=== PATIENT | female | born 1955 | race African-American/Black ===

== ENCOUNTER 2022-05-03 09:06 | Outpatient (CLI) | payer MEDICARE, SELFPAY ==
--- NOTE | ~2022-05-03 | PE_ITS ---
EXAMINATION: PET skull to mid thigh DATE: 05/03/2022 11:12 INDICATION: Pelvic lymphadenopathy TECHNIQUE: 10.4 mCi of 18-fluorodeoxyglucose (18-FDG) was administered i.v. Low dose computed tomogra phy (CT) images were acquired from the base of the brain to the proximal thighs for attenuation corre ction and anatomic localization. Positron emission tomography (PET) images were acquired after inject ion. Images including fused PET/CT images were reconstructed in axial, coronal, and sagittal planes. Automatic exposure control is employed as a dose reduction technique. COMPARISON: None FINDINGS: Head/neck: No cervical lymphadenopathy. No hypermetabolic activity of the neck. Mild mucosal thickening right ma xillary sinus. Mucosal and parapharyngeal spaces are unremarkable. Chest: Mild atherosclerosis of the aorta. Borderline heart size. No significant pleural or pericardial effus ion. Mild mediastinal lymphadenopathy without abnormal FDG uptake. No significant pleural or pericard ial effusion. Evaluation for small pulmonary nodules limited by motion. There is emphysema. No focal airspace consolidation. No suspicious pulmonary nodules or masses. No endobronchial lesions. No hyper metabolic activity in the chest. Abdomen/pelvis/proximal thighs: The liver, spleen, right adrenal gland, pancreas, and kidneys are unremarkable. There is a 2.3 cm low -density lesion in the left adrenal gland, likely benign adenoma. Gallbladder is present. Nonobstruct neftali bowel gas pattern. Normal appendix. Mildly enlarged bilateral obturator lymph nodes no hypermetab olic activity in the abdomen or pelvis. Nonobstructive bowel pattern. No free air or free fluid. With out abnormal FDG uptake, likely reactive. Bones/Soft tissues: No hypermetabolic activity in the bones or soft tissues. IMPRESSION: 1. Mild bilateral symmetric obscured or lymph node enlargement without abnormal FDG uptake, likely re active. 2: No hypermetabolic activity identified in the head/neck, chest, abdomen or pelvis. 3: Left adrenal mass measuring 2.3 cm, likely benign adenoma. Reviewed, dictated and finalized at location A. IMPRESSION: 1. Mild bilateral symmetric obscured or lymph node enlargement without abnormal FDG uptake, likely reactive. 2: No hypermetabolic activity identified in the head/neck, chest, abdomen or p markos. 3: Left adrenal mass measuring 2.3 cm, likely benign adenoma.
[2022-05-03 09:38] LABS: Glucose Point of Care 106 mg/dl (65-105)
== END 2022-05-03 09:07 | disposition home or self-care (01) ==
PROVIDERS: PCP Internal Medicine Infectious Disease; Visit Provider Internal Medicine Infectious Disease
DX: R59.0 Localized enlarged lymph nodes (principal); C77.5 Secondary and unspecified malignant neoplasm of intrapelvic lymph nodes; D35.02 Benign neoplasm of left adrenal gland
CPT/HCPCS: 78815; A9552

== ENCOUNTER 2025-03-30 10:05 | Outpatient (CLI) | payer MEDICARE, SELFPAY ==
--- OUTSIDE RECORDS SUMMARY | 2025-03-30 10:14 | XMS_ITS | Data Portability ---
Author Organization [facility] Address [address] [place] [address] Care Team Providers Care General Clerk Name Role Phone ESTHELA TORRE Primary Care Provider [phone] BEA SUMMERS Irrigation Pump Installer CARMELITA OSBORNE Assembler Motor Vehicle RIDGE BARKLEY Surgical Garment Assembly Supervisor KENJI JAIN General Surgeon MY SHELDON International Flight Attendant Unavailable Assessment Encounter Date Assessment Date Assessment LastModified by Organization Details LastModified Time 08/03/2024 08/03/2024 Addendum LDCT oajao Not available 08/03/2024 13:30:37 Plan of Treatment Reminders Order Date Submit Date Provider Last Modified By Organization Details Last Modified Time Details Appointments ANY 10 2024 10:00A M Bea Summers MD Not available Not available Not available Lab vitamin B12, serum 2024 025 [facility], [address], [place], [address], 02/04/2025 11:35:09 TSH, ultra-s ensitiv e, serum 2024 025 BORIS [facility], [address], [place], [address], 02/04/2025 11:35:10 vitamin D, 25-hydr oxy, total, serum 2023 BORIS [facility], [address], [place], [address], 09/09/2024 08:26:46 CBC w/ auto diff 2023 [facility], [address], [place], [address], 09/09/2024 08:26:44 basic metabol ic 1998 panel, serum or plasma 2023 [facility], [address], [place], [address], 09/09/2024 08:26:43 lipid panel, serum 2023 [facility], [address], [place], [address], 09/09/2024 08:26:41 influen za virus A + B + SARS-Co V-2 (COVID1 9) Ag panel, rapid IA, upper respira tory specime n 2023 024 [facility], [address] [place], [address], 09/15/2024 14:04:25 Referral None recorde d. Procedures None recorde d. Surgeries None recorde d. Imaging MRI, cervica l spine, w/o contras t 2024 [facility] ([facility]), [address] [place], [address], 02/18/2025 13:42:05 electro myogram + nerve conduct ion study - Worseni ng neuropa thic symptom s o f the LUE 2024 025 [facility] ([facility]), [address], [place], [address], 03/18/2025 18:22:44 LDCT, chest, for lung cancer screeni ng 2024 026 [facility] ([facility]), [address] [place], [address], 12/21/2024 12:42:56 LDCT, chest, for lung cancer screeni 2023 024 [facility] ([facility]), [address] [place], [address], 10/08/2024 19:32:39 Medication Orders benzona santillan 200 mg capsule 2024 025 [facility], [address] [place] [address], [id number], 02/10/2025 17:18:17 azithro mycin 250 mg tablet 2024 025 [facility], [address] [place] [address], [id number], 02/10/2025 17:18:19 alendro drew 70 mg tablet 2023 024 [facility], [address] [place] [address], [id number], 12/04/2024 14:46:23 flutica sone propion ate 50 mcg/act uation nasal spray,s uspensi on 2023 024 [facility], [address] [place] [address], [id number], 12/28/2024 14:43:42 hydroch lorothi azide 25 mg tablet 2023 024 [facility], [address] [place] [address], [id number], 08/03/2024 13:51:08 amlodip ine 10 mg tablet 2023 024 [facility], [address] [place] [address], [id number], 08/03/2024 13:51:07 Patient TargetsNo targets recorded. Patient Instructions Encounter Date Encounter Id Patient Instructions Last Modified By Organization Details Last Modified Time 05/07/2024 [id number] chronic obstruct neftali pulmonary disease (COPD): care instructions ajamous Not available 05/07/2024 11:37:56 Quitting Tobacco : Care Instructions ajamous Not available 05/07/2024 11:37:56 allergies: care instructions ajamous Not available 05/07/2024 11:37:56 managing your allergies: care instructions ajamous Not available 05/07/2024 11:37:56 chronic cough: c are instructions ajamous Not available 05/07/2024 11:37:56 chronic obstruct neftali pulmonary disease (COPD): care instructions ajamous Not available 05/07/2024 11:37:56 learning about c opd and how to prevent lung infections ajamous Not available 05/07/2024 11:37:56 08/03/2024 [id number] carotid stenosis : care instructions oajao Not available 08/03/2024 12:13:14 upper respirator y infection (cold): care instructions oajao Not available 08/03/2024 12:03:37 Labs Schedule th e COVID vaccine Follow up in 6 months and PRN Addendum LDCT oajao Not available 08/03/2024 13:30:20 09/10/2024 [id number] chronic obstruct neftali pulmonary disease (COPD): care instructions ajamous Not available 09/10/2024 11:38:26 Quitting Tobacco : Care Instructions ajamous Not available 09/10/2024 11:38:26 allergies: care instructions ajamous Not available 09/10/2024 11:38:25 managing your allergies: care instructions ajamous Not available 09/10/2024 11:38:26 chronic cough: c are instructions ajamous Not available 09/10/2024 11:38:26 chronic obstruct neftali pulmonary disease (COPD): care instructions ajamous Not available 09/10/2024 11:38:26 learning about c opd and how to prevent lung infections ajamous Not available 09/10/2024 11:38:26 12/21/2024 [id number] chronic obstruct neftali pulmonary disease (COPD): care instructions ajamous Not available 12/21/2024 12:42:56 Quitting Tobacco : Care Instructions ajamous Not available 12/21/2024 12:42:56 allergies: care instructions ajamous Not available 12/21/2024 12:42:56 managing your allergies: care instructions ajamous Not available 12/21/2024 12:42:56 chronic cough: c are instructions ajamous Not available 12/21/2024 12:42:56 chronic obstruct neftali pulmonary disease (COPD): care instructions ajamous Not available 12/21/2024 12:42:56 learning about c opd and how to prevent lung infections ajamous Not available 12/21/2024 12:42:56 02/03/2025 [id number] carpal tunnel syndrome: care instructions oajao Not available 02/03/2025 12:43:10 carpal tunnel syndrome: exercises oajao Not available 02/03/2025 12:43:10 chronic cough: c are instructions oajao Not available 02/03/2025 12:41:25 chronic obstruct neftali pulmonary disease (COPD): care instructions oajao Not available 02/03/2025 12:45:51 learning about c opd and how to prevent lung infections oajao Not available 02/03/2025 12:45:51 neuropathic pain : care instructions oajao Not available 02/03/2025 12:43:10 Dictated cardiac catheterization report CXR report from her most recent ER visit Labs MRI, EMG/NCS Azithromycin/Tessal on perles Stop smoking Follow up in 6 weeks oajao Not available 02/03/2025 13:49:06 Detailed visit oajao Not available 0 02/03/2025 13:42:46 Reason for Referral None Reported. Results Created Date Observation Date Name Description Value Unit Range Abnormal Flag Note LastModifiedBy Organization Detail LastModifiedTime 09/08/20 24 09/09/2024 LIPID PANEL cholesterol, total 147 mg/dL 100-19 9 Not Available [facility] ([facility]) [address] [facility], [place], [address], 09/09/2024 08:26:41 09/08/20 24 09/09/2024 LIPID PANEL triglyceride s 108 mg/dL 0-149 Not Available [facility] ([facility]) [address] [place], [address], 09/09/2024 08:26:41 09/08/20 24 09/09/2024 LIPID PANEL HDL cholesterol 42 mg/dL >39 Not Available [facility] ([facility]) [address] [place], [address], 09/09/2024 08:26:41 09/08/20 24 09/09/2024 LIPID PANEL VLDL cholesterol ion 20 mg/dL 5-40 Not Available [facility] ([facility]) [address] [place], [address], 09/09/2024 08:26:41 09/08/20 24 09/09/2024 LIPID PANEL LDL chol calc ([facility]) 85 mg/dL 0-99 Not Available [facility] ([facility]) [address] [place], [address], 09/09/2024 08:26:41 09/08/20 24 09/09/2024 BASIC METAB OLIC PANEL (7) glucose 101 mg/dL 70-99 above high normal Not Available [facility] ([facility]) [address] [place], [address], 09/09/2024 08:26:43 09/08/20 24 09/09/2024 BASIC METAB OLIC PANEL (7) BUN 11 mg/dL 8-27 Not Available [facility] ([facility]) [address] [place], [address], 09/09/2024 08:26:43 09/08/20 24 09/09/2024 BASIC METAB OLIC PANEL (7) creatinine 0.78 mg/dL 0.57-1 .00 Not Available [facility] ([facility]) [address] [place], [address], 09/09/2024 08:26:43 09/08/20 24 09/09/2024 BASIC METAB OLIC PANEL (7) eGFR 83 mL/mi n/1.7 3 >59 Not Available [facility] ([facility]) [address] [facility], [place], [address], 09/09/2024 08:26:43 09/08/20 24 09/09/2024 BASIC METAB OLIC PANEL (7) BUN/creatini ne ratio 14 12-28 Not Available [facility] ([facility]) [address] [facility], [place], [address], 09/09/2024 08:26:43 09/08/20 24 09/09/2024 BASIC METAB OLIC PANEL (7) sodium 142 mmol/ L 134-14 4 Not Available [facility] ([facility]) [address] [facility], [place], [address], 09/09/2024 08:26:43 09/08/20 24 09/09/2024 BASIC METAB OLIC PANEL (7) potassium 4.3 mmol/ L 3.5-5. 2 Not Available [facility] ([facility]) [address] [place], [address], 09/09/2024 08:26:43 09/08/20 24 09/09/2024 BASIC METAB OLIC PANEL (7) chloride 103 mmol/ L 96-106 Not Available [facility] ([facility]) [address] [place], [address], 09/09/2024 08:26:43 09/08/20 24 09/09/2024 BASIC METAB OLIC PANEL (7) carbon dioxide, total 26 mmol/ L 20-29 Not Available [facility] ([facility]) [address] [place], [address], 09/09/2024 08:26:43 09/08/20 24 09/08/2024 CBC WITH DIFFE RENTI AL/PL ATELE T WBC 9.6 x10e3 /uL 3.4-10 .8 Not Available [facility] ([facility]) [address] [facility], [place], [address], 09/09/2024 08:26:44 09/08/20 24 09/08/2024 CBC WITH DIFFE RENTI AL/PL ATELE T RBC 5.25 x10e6 /uL 3.77-5 .28 Not Available [facility] ([facility]) [address] [facility], [place], [address], 09/09/2024 08:26:44 09/08/20 24 09/08/2024 CBC WITH DIFFE RENTI AL/PL ATELE T hemoglobin 12.0 g/dL 11.1-1 5.9 Not Available [facility] ([facility]) [address] [facility], [place], [address], 09/09/2024 08:26:44 09/08/20 24 09/08/2024 CBC WITH DIFFE RENTI AL/PL ATELE T hematocrit 40.3 % 34.0-4 6.6 Not Available [facility] ([facility]) [address] [place], [address], 09/09/2024 08:26:44 09/08/20 24 09/08/2024 CBC WITH DIFFE RENTI AL/PL ATELE T MCV 77 fL 79-97 below low normal Not Available [facility] ([facility]) [address] [place], [address], 09/09/2024 08:26:44 09/08/20 24 09/08/2024 CBC WITH DIFFE RENTI AL/PL ATELE T MCH 22.9 pg 26.6-3 3.0 below low normal Not Available [facility] ([facility]) [address] [place], [address], 09/09/2024 08:26:44 09/08/20 24 09/08/2024 CBC WITH DIFFE RENTI AL/PL ATELE T MCHC 29.8 g/dL 31.5-3 5.7 below low normal Not Available [facility] ([facility]) [address] [facility], [place], [address], 09/09/2024 08:26:44 09/08/20 24 09/08/2024 CBC WITH DIFFE RENTI AL/PL ATELE T RDW 15.8 % 11.7-1 5.4 above high normal Not Available [facility] ([facility]) [address] [facility], [place], [address], 09/09/2024 08:26:44 09/08/20 24 09/08/2024 CBC WITH DIFFE RENTI AL/PL ATELE T platelets 450 x10e3 /uL 150-45 0 Not Available [facility] ([facility]) [address] [facility], [place], [address], 09/09/2024 08:26:44 09/08/20 24 09/08/2024 CBC WITH DIFFE RENTI AL/PL ATELE T neutrophils 60 % notest ab. Not Available [facility] ([facility]) [address] [facility], [place], [address], 09/09/2024 08:26:44 09/08/20 24 09/08/2024 CBC WITH DIFFE RENTI AL/PL ATELE T lymphs 32 % notest ab. Not Available [facility] ([facility]) [address] [facility], [place], [address], 09/09/2024 08:26:44 09/08/20 24 09/08/2024 CBC WITH DIFFE RENTI AL/PL ATELE T monocytes 6 % notest ab. Not Available [facility] ([facility]) [address] [facility], [place], [address], 09/09/2024 08:26:44 09/08/20 24 09/08/2024 CBC WITH DIFFE RENTI AL/PL ATELE T eos 2 % notest ab. Not Available [facility] ([facility]) [address] [facility], [place], [address], 09/09/2024 08:26:44 09/08/20 24 09/08/2024 CBC WITH DIFFE RENTI AL/PL ATELE T basos 0 % notest ab. Not Available [facility] ([facility]) [address] [facility], [place], [address], 09/09/2024 08:26:44 09/08/20 24 09/08/2024 CBC WITH DIFFE RENTI AL/PL ATELE T neutrophils (absolute) 5.7 x10e3 /uL 1.4-7. 0 Not Available [facility] ([facility]) [address] [facility], [place], [address], 09/09/2024 08:26:44 09/08/20 24 09/08/2024 CBC WITH DIFFE RENTI AL/PL ATELE T lymphs (absolute) 3.0 x10e3 /uL 0.7-3. 1 Not Available [facility] ([facility]) [address] [facility], [place], [address], 09/09/2024 08:26:44 09/08/20 24 09/08/2024 CBC WITH DIFFE RENTI AL/PL ATELE T monocytes(ab solute) 0.6 x10e3 /uL 0.1-0. 9 Not Available [facility] ([facility]) [address] [facility], [place], [address], 09/09/2024 08:26:44 09/08/20 24 09/08/2024 CBC WITH DIFFE RENTI AL/PL ATELE T eos (absolute) 0.2 x10e3 /uL 0.0-0. 4 Not Available [facility] ([facility]) [address] [facility], [place], [address], 09/09/2024 08:26:44 09/08/20 24 09/08/2024 CBC WITH DIFFE RENTI AL/PL ATELE T baso (absolute) 0.0 x10e3 /uL 0.0-0. 2 Not Available [facility] ([facility]) [address] [facility], [place], [address], 09/09/2024 08:26:44 09/08/20 24 09/08/2024 CBC WITH DIFFE RENTI AL/PL ATELE T immature granulocytes 0 % notest ab. Not Available [facility] ([facility]) [address] [facility], [place], [address], 09/09/2024 08:26:44 09/08/20 24 09/08/2024 CBC WITH DIFFE RENTI AL/PL ATELE T immature grans (abs) 0.0 x10e3 /uL 0.0-0. 1 Not Available [facility] ([facility]) [address] [facility], [place], [address], 09/09/2024 08:26:44 09/08/20 24 09/09/2024 VITAM IN D, 25-HY DROXY vitamin D, 25-hydroxy 36.5 NG/mL 30.0-1 00.0 Vitam in D defic iency has been defin ed by the Insti tute of Medic ine and an Endoc rine Socie ty pract ice guide line as a level of serum 25-OH vitam in D less than 20 ng/mL (1,2) . The Endoc rine Socie ty went on to fur er defin e vitam in D insuf ficie ncy as a level betwe en 21 and 29 ng/mL (2). 1. IOM (Inst itute of Medic ine). 2010. Dieta ry refer ence intak es for calci um and D. Juan Miguel kolb [place]: The [facility] Press . 2. Evelio forte MF, Priscila saldaña [place], Jamal off-F errar i SINGH, et al. Evalu ation , treat ment, and preve ntion of vitam in D defic iency : an Endoc rine Socie ty clini ion pract ice guide line. JCEM. 2010; 96(7) :1911 -30. Not Available [facility] ([facility]) [address] [facility], [place], [address], 09/09/2024 08:26:46 11/04/19 25 11/04/2024 Influ sanford virus A and B and SARS- CoV-2 (COVI D-19) and Respi rator y syncy tial virus RNA panel - Respi rator y syste m speci men by REYNA with probe detec tion sars-cov-2 (covid-19) RNA [presence] in specimen by REYNA with probe detection NEGATI VE normal Not Available Not Available 14:01:23 11/04/19 25 11/04/2024 Influ sanford virus A and B and SARS- CoV-2 (COVI D-19) and Respi rator y syncy tial virus RNA panel - Respi rator y syste m speci men by REYNA with probe detec tion influenza virus A RNA [presence] in respiratory system specimen by REYNA with probe detection POSITI VE Not Available Not Available 14:01:23 11/04/19 25 11/04/2024 Influ sanford virus A and B and SARS- CoV-2 (COVI D-19) and Respi rator y syncy tial virus RNA panel - Respi rator y syste m speci men by REYNA with probe detec tion influenza virus B RNA [presence] in respiratory system specimen by REYNA with probe detection NEGATI VE normal Not Available Not Available 14:01:23 11/04/19 25 11/04/2024 Influ sanford virus A and B and SARS- CoV-2 (COVI D-19) and Respi rator y syncy tial virus RNA panel - Respi rator y syste m speci men by REYNA with probe detec tion respiratory syncytial virus RNA [presence] in nasopharynx by REYNA with probe detection NEGATI VE normal Not Available Not Available 14:01:23 02/04/20 25 02/04/2025 VITAM IN B12 vitamin B12 1017 pg/mL 232-12 45 Not Available [facility] ([facility]) [address] [facility], [place], [address], 02/04/2025 11:35:09 02/04/20 25 02/04/2025 TSH TSH 0.892 uIU/m L 0.450- 4.500 Not Available [facility] ([facility]) [address] [facility], [place], [address], 02/04/2025 11:35:10 05/07/20 24 12/13/2023 son metry , [facility] hodil ation No observ ation record ed. BARCODE Not Available 2023 10:33:27 07/01/20 24 07/01/2024 trans -thor acic echoc ardio gram (TTE) (PROC ) No observ ation record ed. [facility] [address], [place], [address], 08/03/2024 11:59:27 07/02/20 24 07/02/2024 MAMMO , scree ash, digit al, bilat eral No observ ation record ed. [facility] [address] [place], [address], 08/03/2024 11:59:26 10/08/19 25 10/08/2024 LDCT, chest , for lung cance r scree ash No observ ation record ed. [facility] [address] [place], [address], 02/03/2025 12:30:52 10/09/19 25 10/08/2024 LDCT, chest , for lung cance r scree ash No observ ation record ed. mak Torre MD [address] [place], [address], 02/03/2025 12:28:46 Result Notes None recorded. Problems Name Problem SNOMED Code Status Onset Date Resolution Date Notes Provider Name and Address Organization Details Recorded Time Pulmonar y emphysem a 05855792 Completed 201709/05/2018 Marianela Patel RN null, [place] - [facility] 8 11:59:37 Chronic obstruct neftali pulmonar y disease 15217277 Active 2017 Not Available [facility] 3 07:51:09 Anemia 092766303 Active 2017 Not Available [facility] 3 07:51:09 Vocal cord dysfunct ion 083009271 Active 2018 Not Available [facility] 3 07:51:09 History of hypercho lesterol emia 411957162 Active 2018 Not Available [facility] 3 07:51:09 History of tracheos cynthia 711044565 Active 2018 Not Available [facility] 3 07:51:09 Chronic respirat ory insuffic iency 217243617 Active 2018 Not Available [facility] 3 07:51:09 Patient on oxygen 213534633 Active 2018 Not Available [facility] 3 07:51:09 Degenera tion of cervical interver tebral disc 04020432 Active 2018 Not Available [facility] 3 07:51:09 Stenosis of interver tebral foramina 11828704168 9 Active 2018 Not Available [facility] 3 07:51:09 Bloody nipple discharg e 525783367 Active 2018 Not Available [facility] 3 07:51:09 Tobacco user 483885369 Active Not Available [facility] 3 07:51:09 Recurren t major depressi ve episodes , mild 022106196 Active Not Available [facility] 3 07:51:09 Benign hyperten jareth 07750666 Active Not Available [facility] 3 07:51:09 Osteopor osis 79497174 Active 2019 Not Available [facility] 3 07:51:09 Diastoli c dysfunct ion 9703243 Active 2021 Not Available [facility] 3 07:51:09 CT of abdomen abnormal 57182700258 351230 Active 2021 Not Available [facility] 3 07:51:09 History of chickenp ox 246412355 Active 2022 Not Available [facility] 3 07:51:09 Paresthe edmond 67923594 Active Not Available [facility] 3 07:51:09 Carotid artery stenosis 87038360 Active 2022 Not Available [facility] 3 07:51:09 Chronic anemia 889166909 Active 2022 Not Available [facility] 3 07:51:09 Dependen ce on suppleme ntal oxygen 71932658774 7 Active 2022 Not Available [facility] 3 07:51:09 Impaired fasting glycemia 870799887 Active 2022 Not Available [facility] 3 07:51:09 History of pancreat itis 66985238923 107 Active 2023 Esthela Torre MD Attn: Accounting, [address] [place], [address], [place] [facility] 4 10:39:45 Screenin g for malignan t neoplasm of breast Active Not Available [facility] 3 07:51:09 Gynecolo gic examinat ion Active Not Available [facility] 3 07:51:09 Atrophic vaginiti s 44855842 Active Not Available [facility] 3 07:51:09 Nodule of lung 063229167 Active 2024 Esthela Torre MD Attn: Accounting, [address] [place], [address], [place] [facility] 5 13:35:51 Carpal tunnel syndrome of left wrist 74478671210 9102 Active 2024 Esthela Torre MD Attn: Accounting, [address] [facility], [place], [address], [place] [facility] 5 13:42:46 Tobacco dependen ce caused by cigarett es 18361864832 034346 Active 2024 Esthela Torre MD Attn: Accounting, [address] [facility], [place], [address], [facility] 5 13:48:28 History of influenz a 720057932 Active 2024 Esthela Torre MD Attn: Accounting, [address] [facility], [place], [address], [facility] 5 13:49:38 Disorder of lipid metaboli sm 140301935 Active Not Available [facility] 3 07:51:09 Essentia l hyperten jareth 98834867 Active Not Available [facility] 3 07:51:09 Laborato ry test result abnormal 532748233 Active Not Available [facility] 3 07:51:09 Abnormal cervical Papanico laou smear 364790378 Active Not Available [facility] 3 07:51:09 Cervical intraepi thelial neoplasi a 546540203 Active Not Available [facility] 3 07:51:09 Human papillom a virus infectio n 012051163 Active Not Available [facility] 3 07:51:09 Smoker 31462263 Active 1 ppd x 41 yrs Not Available [facility] 3 07:51:09 Menopaus al syndrome 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 Please review these documents and add these problems to the patient's chart manually as needed. Problem Notes None recorded. Procedures Surgical History Date Name Laterality Status Provider Name and Address Organization Details Recorded Time 11/26/19 24 Cerumen removal without microscope completed Franc Chacon MA [facility] 11/26/2023 11:29:03 05/09/20 22 Date of Last Pap Smear completed Madhavi Ardon MA [facility] 05/09/2022 09:43:34 05/01/20 22 Date of Last Mammogram completed Madhavi Ardon MA [facility] 05/09/2022 09:44:16 05/01/20 22 Most Recent Mammogram completed Madhavi Ardon MA [facility] 05/09/2022 09:44:12 03/23/20 21 Breast Biopsy completed Madhavi Ardon MA [facility] 06/20/2021 10:41:08 07/02/20 18 colonoscopy completed Esthela Torre MD Attn: Accounting,[address] [place], [address], [facility] 02/24/2020 10:47:53 05/01/20 17 anterior tracheostomy completed Esthela Torre MD Attn: Accounting,[address] [place], [address], [facility] 02/24/2021 10:00:52 04/06/20 15 Colposcopy completed Fransisco Ady [facility] 04/06/2015 11:33:16 09/23/19 08 Breast Surgery completed Keke Velasquez MA [facility] 04/06/2015 11:03:06 Imaging Results None recorded. Procedure Notes None recorded. Medical Equipment None Reported. Allergies Allergen ID Allergen Name Allergen Category Reaction Reaction Severity Criticality Documentation Date Start Date Code Code System Note Provider Name and Address Organization Details Recorded Time 603287 penicilli n V Not available Not available Not available Not available 07/02/2023 7984 RxNorm Other react ions and sever ities : 'Adve rse react ion to subst ance' . Esthela Torre MD Attn: Accountin g,[address] [facility], [place], [address], [facility] 3 11:59:42 93813 Product containin g penicilli n (product) medicatio n other severe Not available 11/02/2014 69786 8001 SNOMED Esthela Torre MD Attn: Accountin g,[address] [place], [address], [facility] 7 16:35:51 Medications Name Sig Start Date Stop Date Status Note LastModified by Organization Details LastModified Time Prescript ion - Clarifica tion 07/20 /2018 completed Not Available Not Available Not Available Prescript ion - New 06/20 completed Not Available Not Available Not Available multivita min tablet Take 1 tablet every day by oral route. 02/03 completed [facility] Not Available Not Available Not Available cyclobenz aprine 10 mg tablet TAKE ONE TABLET BY MOUTH EVERY 8 HOURS NEEDED 01/03 completed Not Available Not Available Not Available fluconazo le 100 mg tablet Take 1 tablet every day by oral route as directed for 10 days. 04/11 completed Not Available Not Available Not Available methocarb parris 500 mg tablet TAKE ONE TABLET EVERY 4 HOURS NEEDED FOR MUSCLE SPASMS 08/03 completed Not Available Not Available Not Available promethaz ine-DM 6.25 mg-15 mg/5 mL oral syrup Take 5 mL every 6 hours by oral route for 30 days. 10/09 completed Not Available Not Available Not Available nystatin 100,000 unit/mL oral suspensio n Take 5 mL 4 times a day by oral route for 10 days. 10/09 completed Not Available Not Available Not Available ipratropi um 0.5 mg-albute rol 3 mg (2.5 mg base)/3 mL nebulizat ion soln INHALE THE CONTENTS OF 1 VIAL VIA NEBULIZE R FOUR TIMES DAILY NEEDED FOR BREATHIN G active Not Available Not Available No t Available Premphase 0.625 mg(14)/0. 625 mg-5mg(14 ) tablet Take 1 tablet every day by oral route. 10/09 completed Not Available Not Available Not Available clindamyc in HCl 300 mg capsule TAKE ONE CAPSULE BY MOUTH EVERY 6 HOURS UNTIL GONE 03/07 completed Not Available Not Available Not Available albuterol sulfate 2.5 mg/3 mL (0.083 %) solution for nebulizat ion 0 mg by inhalati on route. active Not Available Not Available No t Available Tab-A-Vit e tablet TAKE 1 TABLET(S ) EVERY DAY BY ORAL ROUTE. 06/20 completed Centrum Not Available Not Available Not Available azithromy sher 250 mg tablet TAKE 2 TABLETS BY MOUTH ON DAY 1, THEN TAKE 1 TABLET ONCE A DAY FOR THE NEXT 4 DAYS active Not Available Not Available No t Available pravastat in 40 mg tablet TAKE 1 TABLET BY MOUTH ONCE DAILY TO LOWER CHOLESTE ROL active Not Available Not Available No t Available ofloxacin 0.3 % eye drops 04/11 completed Not Available Not Available Not Available fluconazo le 150 mg tablet Take 1 tablet by oral route. 08/25 completed Not Available Not Available Not Available benzonata te 200 mg capsule TAKE ONE CAPSULE BY MOUTH THREE TIMES A DAY, MORNING, MIDDAY AND BEDTIME NEEDED FOR COUGH FOR 7 DAYS 2024 active Not Available Not Available Not Avai lable citalopra m 10 mg tablet TAKE 1 TABLET(S ) BY MOUTH FOR her NERVES 08/25 completed Not Available Not Available Not Available sumatript an 100 mg tablet Take 1 dose pk every day by oral route as needed for 30 days. 03/10 completed Not Available Not Available Not Available prednison e 20 mg tablet Take 2 tablets every day by oral route as directed for 5 days. 05/22 completed Not Available Not Available Not Available alendrona te 70 mg tablet TAKE ONE TABLET BY MOUTH ONCE EVERY WEEK 30 MINUTES BEFORE MEALS active Not Available Not Available No t Available clonazepa m 0.5 mg tablet Take 1 tablet every day by oral route as needed for 15 days. 03/14 completed Not Available Not Available Not Available acetamino phen 300 mg-codein e 30 mg tablet TAKE ONE TABLET BY MOUTH EVERY 8 HOURS DIRECTED FOR FIVE DAYS 01/03 completed Not Available Not Available Not Available aspirin 81 mg tablet,de layed release TAKE ONE TABLET BY MOUTH EVERY DAY active Not Available Not Available No t Available guaifenes in 100 mg/5 mL oral liquid Take 10 mL every 4 hours by oral route as needed for 8 days. 02/24 completed Not Available Not Available Not Available ketorolac 10 mg tablet 02/23 completed Not Available Not Available Not Available oxycodone -acetamin ophen 5 mg-325 mg tablet TAKE ONE TABLET BY MOUTH EVERY 6 TO 8 HOURS NEEDED 07/04 completed Not Available Not Available Not Available ofloxacin 0.3 % ear drops INSTILL 10 DROPS (1.5 MG) INTO AFFECTED R. EAR(S) BY OTIC ROUTE 2 TIMES PER DAY forr 10 days 04/11 completed Not Available Not Available Not Available citalopra m 20 mg tablet TAKE ONE TABLET BY MOUTH ONCE EVERY DAY active Not Available Not Available No t Available potassium chloride ER 20 mEq tablet,ex tended release(p art/cryst ) 06/13 completed Not Available Not Available Not Available pravastat in 80 mg tablet 1 tablet by oral route. active Not Available Not Available No t Available DOK 100 mg capsule 03/10 completed Not Available Not Available Not Available meclizine 25 mg tablet Take 1 tablet 3 times a day by oral route as needed for 7 days. 06/09 completed Not Available Not Available Not Available amlodipin e 10 mg tablet TAKE 1 TABLET BY MOUTH ONCE DAILY FOR BLOOD PRESSURE active Not Available Not Available No t Available benzonata te 100 mg capsule Take 2 capsules 3 times a day by oral route as directed for 7 days. 07/14 completed Not Available Not Available Not Available doxycycli ne monohydra te 100 mg capsule TAKE ONE CAPSULE BY MOUTH TWICE DAILY FOR 7 DAYS 11/25 completed Not Available Not Available Not Available oseltamiv ir 75 mg capsule TAKE 1 CAPSULE BY MOUTH EVERY 12 HOURS X5DAYS 02/03 completed Not Available Not Available Not Available lisinopri l 10 mg tablet TAKE ONE TABLET BY MOUTH ONE TIME DAILY 03/14 completed Not Available Not Available Not Available promethaz ine 25 mg tablet 10/09 completed Not Available Not Available Not Available budesonid e 0.25 mg/2 mL suspensio n for nebulizat ion INHALE 0.25 MG 4 TIMES A DAY BY NEBULIZA TION ROUTE NEEDED FOR 30 DAYS. 12/12 completed Not Available Not Available Not Available budesonid e 0.5 mg/2 mL suspensio n for nebulizat ion Inhale 2 mL twice a day by nebuliza tion route for 30 days. 10/09 completed Not Available Not Available Not Available monteluka st 10 mg tablet TAKE ONE TABLET BY MOUTH EVERY DAY 08/03 completed One doctor stoppeed it 08/03/20 24 Not Available Not Available Not Available Tussin DM 10 mg-100 mg/5 mL oral liquid Take 10 mL every 4 hours by oral route as needed for 5 days. 07/14 completed Not Available Not Available Not Available hydrochlo rothiazid e 25 mg tablet TAKE ONE TABLET BY MOUTH EVERY MORNING FOR FLUID RETENTIO N active Not Available Not Available No t Available levofloxa sher 500 mg tablet Take 1.5 tablets every 24 hours by oral route for 5 days. 04/11 completed Not Available Not Available Not Available methylpre dnisolone 4 mg tablets in a dose pack Use as directed on package 11/25 completed Not Available Not Available Not Available albuterol sulfate HFA 90 mcg/actua tion aerosol inhaler 2 pufs by inhalati on route. active Not Available Not Available No t Available oxybutyni n chloride 5 mg tablet Take 1 tablet twice a day by oral route. 04/11 completed Not Available Not Available Not Available fluticaso ne propionat e 50 mcg/actua tion nasal spray,gely pension 1 spy by nasal route. active Not Available Not Available No t Available pseudoeph edrine 60 mg tablet Take 1 tablet every 6 hours by oral route as directed for 5 days. 03/01 completed Not Available Not Available Not Available ipratropi um bromide 0.02 % solution for inhalatio n 0.5 microgra ms by inhalati on route. active Not Available Not Available No t Available naproxen 500 mg tablet TAKE ONE TABLET TWICE DAILY 02/03 completed Not Available Not Available Not Available metoclopr amide 10 mg tablet 10/09 completed Not Available Not Available Not Available nicotine 7 mg/24 hr daily transderm al patch Apply 1 patch every day by transder mal route for 14 days. 06/13 completed Not Available Not Available Not Available Bactrim DS 800 mg-160 mg tablet Take 1 tablet every 12 hours by oral route as directed for 7 days. 05/22 completed Not Available Not Available Not Available ezetimibe 10 mg tablet TAKE 1 TABLET BY MOUTH ONCE DAILY TO LOWER CHOLESTE ROL active Not Available Not Available No t Available Premarin 0.625 mg/gram vaginal cream Insert 1 g twice a week by vaginal route. 12/12 completed Not Available Not Available Not Available ciproflox acin 0.3 %-dexamet hasone 0.1 % ear drops,gely pension PLACE THREE drops in THE affected ear(s) TWICE DAILY FOR 7 DAYS 02/04 completed Not Available Not Available Not Available hydrocodo ne 7.5 mg-acetam inophen 325 mg/15 mL oral solution 12/12 completed Not Available Not Available Not Available Spiriva with HandiHale r 18 mcg and inhalatio n capsules Inhale 1 capsule every day by inhalati on route for 30 days. 03/14 completed Not Available Not Available Not Available Antibioti c 02/05 completed Not Available Not Available Not Available Centrum po daily 12/12 completed Not Available Not Available Not Available Brovana 15 mcg/2 mL solution for nebulizat ion Inhale 2 mL twice a day by inhalati on route for 30 days. 03/14 completed Not Available Not Available Not Available peg 3350 240 gram-elec trolytes 22.72 gram-6.72 g-5.84 g powdr for soln 10/09 completed Not Available Not Available Not Available Calcium with Vitamin D 600 mg-10 mcg (400 unit) tablet Take 1 tablet twice a day by oral route. 03/01 completed Not Available Not Available Not Available Vios Aerosol Delivery System 06/20 completed Not Available Not Available Not Available Aerochamb er Plus Flow-Vu USE WITH INHALER active Not Available Not Available No t Available Sterile Saline 0.9 % irrigatio n solution Take 1 irrigati on as needed by irrigati on route as needed for 30 days. 04/11 completed Not Available Not Available Not Available calcium 600 mg (as carbonate )-vitamin D3 20 mcg (800 unit) tablet Take 1 tablet twice a day by oral route. 10/09 completed Not Available Not Available Not Available Osphena 60 mg tablet Take 1 tablet every day by oral route. 2014 active gave patient 45 tablets as a sample Not Available Not Available Not Available Incruse Ellipta 62.5 mcg/actua tion powder for inhalatio n 1 puf by inhalati on route. active Not Available Not Available No t Available fluticaso ne 113 mcg-salme terol 14 mcg/actua tion breath activated powdr 1 puf by inhalati on route. active Not Available Not Available No t Available Imvexxy Starter Pack 4 mcg vaginal insert, dose pack INSERT 1 VAGINAL INSERT (4 MCG) BY VAGINAL ROUTE ONCE DAILY FOR 2 WEEKS THEN 1 INSERT (4 MCG) TWICE WEEKLY FOR DURATION OF USE 03/01 completed Not Available Not Available Not Available Imvebeny Larsenan ce Pack 4 mcg vaginal insert Insert 1 vaginal insert twice a week by vaginal route. 03/01 completed Not Available Not Available Not Available Fluzone Quad (PF) 60 mcg (15 mcg x 4)/0.5 mL IM syringe ADM 0.5ML IM UTD 02/24 completed Not Available Not Available Not Available Vitals Date Recorded Body height Body mass index (BMI) Body weight Body temperature Respiratory rate Oxygen saturation Oxygen saturation in Arterial blood by Pulse oximetry Heart rate Systolic And Diastolic Provider Name and Address Organization Details Last Updated DateTime 5 157.48 cm 27.1 kg/m2 90366.6 7 g 98.5 [degF] 18 /min 92 % 92 % 82 /min 130/64 mm[Hg] Ebony Travis LPN [facility] 5 12:30:12 Date Recorded Body height Body mass index (BMI) Body weight Heart rate Oxygen saturation Oxygen saturation in Arterial blood by Pulse oximetry Systolic And Diastolic Provider Name and Address Organization Details Last Updated DateTime 5 157.48 cm 27 kg/m2 59005.5 2 g 76 /min 95 % 95 % 122/52 mm[Hg] Madhavi Ardon MA [facility] 5 11:55:30 Date Recorded Body height Oxygen saturation Oxygen saturation in Arterial blood by Pulse oximetry Heart rate Body mass index (BMI) Body weight Body temperature Respiratory rate Systolic And Diastolic Provider Name and Address Organization Details Last Updated DateTime 4 157.48 cm 96 % 96 % 74 /min 28 kg/m2 65717.6 3 g 97.2 [degF] 18 /min 146/66 mm[Hg] Ebony Travis LPN [facility] 4 11:27:59 Date Recorded Body height Body mass index (BMI) Body weight Heart rate Oxygen saturation Oxygen saturation in Arterial blood by Pulse oximetry Respiratory rate Body temperature Systolic And Diastolic Provider Name and Address Organization Details Last Updated DateTime 4 157.48 cm 28.3 kg/m2 36150.8 2 g 76 /min 97 % 97 % 16 /min 98.1 [degF] 140/74 mm[Hg] Diana Park MA [place] - [facility] 4 11:45:41 Date Recorded Body height Body mass index (BMI) Body weight Body temperature Respiratory rate Oxygen saturation Oxygen saturation in Arterial blood by Pulse oximetry Heart rate Systolic And Diastolic Provider Name and Address Organization Details Last Updated DateTime 4 157.48 cm 28 kg/m2 35849.6 3 g 97.9 [degF] 18 /min 98 % 98 % 68 /min 138/66 mm[Hg] Ebony Travis LPN [place] - [facility] 4 11:25:07 Social History Question Answer Notes LastModified by Organizat ion Details LastModified Time Tobacco Smoking Status Current Every Day Smoker Madhavi Ardon MA [email or web address], [place] - [facility] 06/20/2021 10:39:38 Do You Have An Advance Directive? No Information not available 11/02/2014 How Many Years Have You Consumed Alcohol? 19 Information not available 10/21/2023 Is Blood Transfusion Acceptable In An Emergency? Yes [email or web address] Information not available 04/06/2015 What Is Your Level Of Caffeine Consumption? Occasional Information not available 11/02/2014 How Much Tobacco Do You Chew? None [email or web address] Information not available 04/06/2015 In The 14 Days Before Symptom Onset, Have You Had Close Contact With A Laboratory-confir med COVID-19 While That Case Was Ill? No Information not available 07/09/2022 In The 14 Days Before Symptom Onset, Have You Had Close Contact With A Person Who Is Under Investigation For COVID-19 While That Person Was Ill? No Information not available 07/09/2022 Have You Been To An Area Known To Be High Risk For COVID-19? No Information not available 07/09/2022 What Type Of Diet Are You Following? REGULAR [email or web address] Information not available 04/06/2015 Which Illicit Or Recreational Drugs Have You Used? Marijuana Pt Denies Information not available 06/20/2021 Education 2 Year College Some College [email or web address] Information not available 04/06/2015 Are There Any Guns Present In Your Home? No Information not available 11/02/2014 Hard Of Hearing Or Deaf In One Or Both Ears? No Information not available 11/02/2014 Legally Blind In One Or Both Eyes? No Information no t available 11/02/2014 Live Alone Or With Others? With Others [email or web address] Information not available 04/06/2015 Marital Status Informatio n not available 11/02/2014 Do You Have A Medical Power Of Furniture Mover Driver? No Information not available 07/09/2022 What Was The Date Of Your Most Recent Tobacco Screening? 02/03/2025 Information not available 02/03/2025 How Many Children Do You Have? 0 [email or web address] Information not available 04/06/2015 What Is Your Current Pack Years? [email or web address] Information not available 06/20/2021 Performs Monthly Self-breast Exam? No Information no t available 11/02/2014 Do You Use Protection During Sex? No [email or web address] Information not available 04/06/2015 What Is Your Relationship Status? [email or web address] Information not available 04/06/2015 Do You Use Your Seat Belt Or Car Seat Routinely? Yes Information not available 06/20/2021 Seat Belts Used Routinely Yes Information not available 11/02/2014 Are You Sexually Active? No [email or web address] Information not available 04/06/2015 Smoke Alarm In Home Yes Information not available 11/02/2014 Do You Have Smoke And Carbon Monoxide Detectors In Your Home? Yes Information not available 06/20/2021 At What Age Did You Start Smoking Tobacco? 19 [email or web address] Information not available 04/06/2015 Are You Passively Exposed To Smoke? Yes Information no t available 06/20/2021 How Much Tobacco Do You Smoke? 0.25 PPD 4-5 A Day [email or web address] Information not available 03/01/2022 General Stress Level High Information not available 11/02/2014 Do You Use Sunscreen Routinely? No Information not available 11/02/2014 Has Tobacco Cessation Counseling Been Provided? Yes Information not available 06/20/2021 On What Date Was Tobacco Cessation Counseling Provided? 02/03/2025 Information not available 02/03/2025 How Many Years Have You Smoked Tobacco? 38 Information not available 11/02/2014 Have You Used IV Drugs? No Information not available 06/20/2021 Sex: Unknown Functional Status Question Answer Note LastModified by Organizat ion Details LastModified Time Do you use any illicit or recreational drugs? Yes Marijuana Information not available 10/21/2023 Do you or have you ever used any other forms of tobacco or nicotine? No Information not available 06/20/2021 What is your level of alcohol consumption? Moderate Information not available 11/02/2014 Do you or have you ever used smokeless tobacco? Never used smokeless tobacco Information not available 08/05/2019 Are you currently employed? 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 Never used electronic cigarettes Information not available 08/05/2019 What is your exercise level? Occasional Information not available 11/02/2014 Mental Status None recorded. Family History Relationship Description Onset Age of this Age Resolved Age Notes LastModified by Organization Details LastModified Time Mother Cerebrovascu lar accident [email or web address] Not available 15:52:53 Mother Dementia [email or web address] Not availab le 06/21/2016 15:52:53 Mother Depressive disorder [email or web address] Not available 06/21 15:52:53 Mother Disorder of thyroid gland [email or web address] Not available 06/21 15:52:53 Mother Hypertensive disorder [email or web address] Not available 06/21 15:52:53 Father Diabetes mellitus [email or web address] Not available 06/21 15:52:53 Father Heart disease [email or web address] Not available 06/21 15:52:53 Father Hypertensive disorder [email or web address] Not available 06/21 15:52:53 Father Hypercholest erolemia [email or web address] Not available 06/21 15:52:53 Maternal Aunt Malignant tumor of breast in her 70's [email or web address] Not available 06/21/2016 15:52:53 Notes:08/05/19 pt states paige ce passed from Uterine Cancer At age 42, Tatiana Irvin, -[facility] Medical History Condition Response Coronary Artery Disease N Kidney Cyst N Blood Diseases N Hyperthyroidism N Blood Transfusion N MRSA N Blood disorders N Emphysema N Blood Clots N COPD N Depression Y Pneumonia N Premature N Peripheral Arterial Disease N Edema N TIA N Headaches/Migraines Y Anxiety Disorder Y Obesity N Polyps N Infertility Y Acid Reflux (GERD) N Hematuria N Stroke N Neck Injury N Polio N Hospital Admission other than N Neurologic Disorder N Other Sleep Disorders N Rheumatoid Arthritis N Fibromyalgia N Abdominal Aortic Aneurysm Repair N Kidney Disease N Heart Conditions N Heart Disease/Heart Problems N Hospitalizations N Brain Tumors N Acne N Skin Problems N Eating Disorder N Meningitis N Constipation N Tuberculosis N Cerebral Palsy Y Myocardial Infarction N Asthma N Substance Abuse N Peripheral Vascular Disease N Vertigo N Sleep Disorder Y Cirrhosis N Pulmonary Embolism N Chicken Pox Y Hematologic Disease N Flomax Use Past or Present N Anxiety/Depression Y Thyroid Disease N Colon Cancer N Lung Disease N Glaucoma N Developmental or Behavioral Disorders N Bipolar N Pacemaker N Diverticulitis/Diverticulosis N Orthopedic Problems N Anesthesia Complications N Orthotics N Head Injury/Concussion N Congenital Anomalies N Rendon Bite N Chronic Kidney Disease N Endometriosis N Liver Disease N Schizophrenia N Dialysis N Speech Delay N Chronic Obstructive Pulmonary Disease N Parkinson's Disease N Thyroid Problems N GI Problems N Developmental Delay N Anemia N Multiple Sclerosis N Immune System Disorder N Colon Polyps N Heart Attack ([place]) N Diabetes N Cardiomyopathy N Blood Transfusions Y Heart Problems/Murmur N Eye Trauma N Congestive Heart Failure (CHF) N Valvular Heart Disease N Hyperlipidemia N Double Vision N Abuse/Domestic Violence N Hepatitis B N Lupus N Epilepsy/Seizures N Reflux/GERD N Aneurysm N Heart Disease N Bronchitis Y Pre-Eclampsia N Hypertension N Heart Failure N Other N Gout N High Blood Pressure Y Atrial Fibrillation N Kidney Stones N Head Trauma/Injury N Congenital Heart Disease N Spine Problems N Gastrointestinal Disease N Lung Mass N Sinusitis N Obstructive Sleep Apnea N Muscle, Joint, or Bone Problems Y Autoimmune disease N Vision or Eye Problems Y Arthritis Y Blood Clot N Cancer N Seasonal allergies Y Leg or Foot Ulcers N Raynaud's Disease N Aortic Aneurysm N Arrhythmia N Headaches Y Heart Problems N Ambl[place]pia N Ear or Hearing Problems N Hyperparathyroidism N Migraines N Artificial Joints N Kidney or Bladder Problems N NSAID Use N Encephalitis N PTSD N Ulcers N Prostate Hypertrophy N Bleeding Disorder N AIDS/HIV N Urinary Tract Infection N Back Problems Y Allergies Y Atrial Flutter N GERD/Reflux N Hepatitis N Autism Spectrum Disorder (ASD) N Breast Cancer N Hernia N Hypothyroidism N Breast Problem Y Genitourinary Disease N Deep Vein Thrombosis N Varicose Veins N Cystic Fibrosis N Hearing Loss N Developmental Problems N Carotid Disease N Vitamin D Deficiency N ADHD N Bladder or Kidney Problems N High Cholesterol N [place] N Valvular Abnormalities N Psychiatric/Mental Health Condition N Organ Transplant N Foot Deformity N Allergies/Hayfever Y Dyslipidemia N Hyponatremia N Diabetic Eye Disease N Osteoporosis/Osteopenia N Back Pain Y Proteinuria N Mental Illness N Neurological Problems N Ovarian Cancer N Bedwetting N Seizures/Epilepsy N Kidney Failure N Ocular trauma N Diverticulitis N Dementia N Sleep Apnea Y Mental Problems N Warfarin Management N Osteoporosis N Gynecological History Statement/Question Response Abnormal Pap Y Date of Last Mammogram 05/01/2022 Date of LMP On BCP's at Conception? N STIs/STDs N HPV Vaccine N Most Recent Mammogram 05/01/2022 Age at Menarche 16 Current Control Method Menopause Age at First Child 2 If Post Menopausal, Age at Menopause 52 Sexually Active? N Menses Monthly N Date of Last Pap Smear 05/09/2022 Sexual Problems? Y LMP Unknown Desired Control Method N/A Obstetrics History GPAL:G 0 P 0 0 0 0 Type Value Multiple Births 0 Full Term 0 Induced 0 Spontaneous 0 Premature 0 Living 0 Ectopics 0 Total 0 Immunizations Vaccine Type Date Status Note Provider Nam e and Address Organization Details Recorded Time COVID-19, mRNA, LNP-S, PF, 30 mcg/0.3 mL dose 1 completed JACKI Whit[place], [place] - [facility] 10/21/2023 10:12:33 COVID-19, mRNA, LNP-S, PF, 30 mcg/0.3 mL dose 1 completed JACKI [place], [place] - [facility] 10/21/2023 10:12:33 Influenza, split virus, quadrivalent, PF 0 completed Not Available [facility] 09/30/2023 04:17:38 Pneumococcal conjugate PCV 13 7 completed Not Available [facility] 09/30/2023 04:17:38 zoster recombinant 3 completed Not Available [facility] 09/30/2023 04:17:38 zoster recombinant 3 completed Not Available [facility] 09/30/2023 04:17:38 Tdap 3 completed Not Available [facility] 09/30/2023 04:17:38 Influenza, split virus, quadrivalent, preservative 7 completed Not Available [facility] 09/30/2023 04:17:38 Influenza, split virus, quadrivalent, preservative 2 completed Not Available [facility] 09/30/2023 04:17:38 Influenza, split virus, quadrivalent, preservative 9 completed Not Available [facility] 09/30/2023 04:17:38 Influenza, high-dose, quadrivalent, PF 3 completed Not Available [facility] 09/30/2023 04:17:38 COVID-19, mRNA, LNP-S, PF, 30 mcg/0.3 mL dose 1 completed JACKI [place], [place] - [facility] 10/21/2023 10:12:33 SARS-COV-2 (COVID-19) vaccine, UNSPECIFIED 1 completed JACKI [place], [place] - [facility] 10/21/2023 10:12:33 SARS-COV-2 (COVID-19) vaccine, UNSPECIFIED 1 completed Not Available [facility] 09/30/2023 04:17:38 COVID-19, mRNA, LNP-S, bivalent, PF, 30 mcg/0.3 mL dose 2 completed Diana Park MA null, [place] - [facility] 10/21/2023 10:12:33 pneumococcal polysaccharide PPV23 2 completed Not Available [facility] 09/30/2023 04:17:38 Tdap 7 completed Not Available [facility] 09/30/2023 04:17:38 Influenza, split virus, quadrivalent, PF 8 completed Not Available [facility] 09/30/2023 04:17:38 Influenza, split virus, quadrivalent, PF 1 completed Not Available [facility] 09/30/2023 04:17:38 influenza, unspecified formulation 8 completed Diana Park MA null, [place] - [facility] 10/21/2023 10:12:33 influenza, intradermal, quadrivalent, preservative free 6 completed Not Available [facility] 09/30/2023 04:17:38 COVID-19, mRNA, LNP-S, PF, 50 mcg/0.5 mL 3 completed Traci Calzada [place] null, [place] [facility] 08/21/2023 15:03:10 Past Encounters Encounter ID Performer Location Encounter Start Date Encounter Closed Date Diagnosis/Indication Diagnosis SNOMED-CT Code Diagnosis ICD10 Code Diagnosis Note [id number] MD Elizabeth Matute (Adult Med) [address] [place] [phone] 0 11/02/2014 12:20:27 11/02/2014 14:42:56 General examination of patient [id number] Pap smear was abnormal and she follows up with Dr. Garsia. 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 She smokes but does not drink excessivel y. She lives with a who she states is an alcoholic but she denies any physical or verbal abuse. She was on the verge of tears and she does not take good care of herself. Counseling was highly recommende d, she wants to wait until she follows up Benign hypertension [id number] MD Elizabeth Kinsey (SYNTHETIC GEM PRESS OPERATOR) [address] [place] [address] 68476-346 0 12/13/2014 14:40:07 12/13/2014 16:19:19 Screening for malignant neoplasm of breast [id number] Gynecologi c examination 84970355 Atrophic vaginitis 19117344 [id number] MD Elizabeth Kinsey (SYNTHETIC GEM PRESS OPERATOR) [address] [place] [address] 54484-644 0 02/22/2015 15:40:55 02/22/2015 18:17:34 Atrophic vaginitis 59345212 Gynecologi c examination 81418130 [id number] MD Elizabeth Matute (Adult Med) [address] [place] [address] 03790-711 0 03/18/2015 16:20:11 03/18/2015 17:06:32 Disorder of lipid metabolism 283620715 Continue low CHO diet Start Pravastati n 40 Essential hypertension 10529718 Laboratory test result abnormal 699056187 [id number] MD Elizabeth Kinsey (SYNTHETIC GEM PRESS OPERATOR) [address] [place] [address] 15338-643 0 04/06/2015 09:56:09 04/06/2015 11:35:15 Abnormal cervical Papanicolaou smear 274639273 [id number] MD Elizabeth Kinsey (SYNTHETIC GEM PRESS OPERATOR) [address] [place] [address] 01298-775 0 04/20/2015 10:28:51 04/20/2015 10:54:32 Abnormal cervical Papanicolaou smear 268701861 Cervical intraepithelial neoplasia 439951272 Human jerrod lloma virus infection 280388702 Smoker 28496381 [id number] [facility]NTHETIC GEM PRESS OPERATOR) [address] [place] [address] 47345-943 0 10/18/2015 09:48:08 10/18/2015 11:05:32 Abnormal cervical Papanicolaou smear 680121624 R87.619 Smoker 71865527 F17.200 Menopausal syndrome 1237 34483 N95.9 [id number] MD Elizabeth Kinsey (SYNTHETIC GEM PRESS OPERATOR) [address] [place] [address] 66284-024 0 06/21/2016 14:52:59 06/21/2016 16:59:19 Abnormal cervical Papanicolaou smear 792969048 R87.612 R87.820 Screening for malignant neoplasm of breast 587849356 Z12.31 Atrophic vaginitis 74157 000 N95.2 [id number] Esthela Torre MD Elizabeth (Adult Med) [address] [place] [address] 15243-023 0 08/27/2016 11:50:39 08/27/2016 13:01:27 Chronic obstructive pulmonary disease 61275084 J44.9 Cough 70417023 R05 Cramp 15776465 R25.2 Hyperlipid emia screening 005078238 Z13.220 Benign hypertension 1072 5009 I10 Tobacco de pendence in remission 669973568 F17.780 [id number] Esthela Torre MD [facility] (Adult Med) [address] [place] [address] 31721-851 0 10/09/2016 15:30:03 10/09/2016 17:37:52 Disorder of lipid metabolism 553193069 E78.9 This is a chronic issue dating back to 2009, she was previously treated with Crestor and then Pravastati n, she cannot give me a good reason why she is not taking either medication . She is hypertensi ve, smokes and she is over 52.Continu e low CHO diet Restart Pravastati n 40mg po daily, side effects were discussedL abs in 6 weeks Cramp in lower limb 4499 27806 R25.2 Resolved Benign hypertension 1072 5009 I10 Chronic ob structive pulmonary disease 61961012 J44.9 Reschedule PFTS, she is now insured Screening for malignant neoplasm of breast 951019538 Z12.31 Weight gain 5891463 R63. 5 [id number] Esthela Torre MD [facility] (Adult Med) [address] [place] [address] 72562-254 0 02/05/2017 15:03:46 02/05/2017 16:00:33 Solitary nodule of lung 002622072 R91.1 Incidental finding on her CT scan, she is aware that she will need a follow up CT scan in a year Sinus bradycardia 367537 05 R00.1 Possibly from her hypoxia, the notes from the cardiologi st suggested an echocardio gram and avoiding AV conduction blockers. Normal grief reaction 27 5748763 F43.20 Anxiety 38874688 F41.9 She has refused counseling , she should start the Citalopram that was prescribed Benign hypertension 1072 5009 I10 Adrenal mass 935847947 R 19.09 Incidental finding Vocal cord dysfunction 928315362 R49.9 Surgery was recommende d Tobacco de pendence in remission 932648642 F17.477 [id number] Kurtis Roberts MD [facility] [address] [place] [address] 02/21/2017 11:23:57 02/21/2017 13:05:27 Chronic obstructive pulmonary disease 07772005 J44.9 VAA328%, FVC94%, FEV1/FVC59 %, continue albuterol and nebulizer treatment, will add Spiriva Solitary n odule of lung 831191417 R91.1 Need follow up in 1 year, 4 mm in NACHO Mammogram was unremarkab le, colonscopy 4 years ago was fine. will check PPD. Pulmonary emphysema 8743 3001 J43.9 DLCO 42%, TLC 84% Chronic hoarseness 38405 78831 105 R49.0 Secondary to vocal cord paralysis. Sleep disorder 63126194 G47.9 need nocturnal study [id number] MD Elizabeth Matute (Adult Med) [address] [place] [address] 25344-683 0 03/14/2017 16:06:33 03/15/2017 09:37:30 Adrenal incidentaloma 6306457092 [address] scan as previously ordered [id number] MD Elizabeth Matute (Adult Med) [address] [place] [address] 01445-901 0 04/25/2017 16:23:32 04/25/2017 17:51:45 Acute exacerbation of chronic obstructive pulmonary disease 122962190 J44.1 Minimal improvemen t after she received her treatment with albuterol via nebulizer, she was advised to go to the ER and she has refused. She is no shape to undergo a sleep study tonight and she states that her pulmonolog ist does not mind whether she is on Brovana or Budesonide . she was discharged home on Budesonide Recurrent major depressive episodes, mild 363962288 F33.0 She is hallucinat ing, it is unclear if this could be partially due to her acute illness and hypoxia or her mood disorder, this also happened in the past in the setting of an acute illness. Tobacco de pendence syndrome 09900754 F17.200 Her nicotine use is ~ 2 cigs/day [id number] MD Elizabeth Matute (Adult Med) [address] [place] [address] 25120-454 0 05/14/2017 09:58:57 05/14/2017 17:38:36 Follow-up visit 924734021 Z09 Superficia l thrombophlebitis 3231405 I80.9 Recurrent major depressive episodes, mild 443025895 F33.0 Benign hypertension 1072 5009 I10 Chronic ob structive pulmonary disease 24349070 J44.9 Hypokalemia 95988844 E87 .6 She has no Gi symptoms, the etiology is unclear Tracheostomy present 302 580882 Z93.0 Paralysis of vocal cords or larynx 474841827 J38.00 [id number] Esthela Torre MD [facility] (Adult Med) [address] [place] [address] 06/13/2017 16:09:34 06/17/2017 09:15:32 Anemia 643416091 D64.9 Chronic issue, previously on iron. Her recent admission may also have played a role Increased liver function 69955904 R94.5 Meds? Influenza vaccine needed 5232056558 106 Z23 Administra tion of pneumococcal vaccine 81105234 Z23 Requires t etanus and diphtheria vaccination 057606778 Z28.3 Superficia l thrombophlebitis 4147516 I80.9 Follow up US of the RUE as previously ordered [id number] Kurtis Roberts MD [facility] [address] [place] [address] 2 06/17/2017 10:55:22 06/17/2017 12:52:05 Chronic obstructive pulmonary disease 88681266 J44.9 WMD362%, FVC94%, FEV1/FVC59 %, continue albuterol and switch Incruse to Brovana and Pulmicort along with Atrovent via nebulizer. I am not sure how Incruse is effective. Tracheobronchitis 706704 04 J40 I will add Zithromax to her regimen Solitary n odule of lung 655059273 R91.1 Need follow up in 1 year, 4 mm in NACHO Mammogram was unremarkab le, colonscopy 4 years ago was fine. will check PPD. Pulmonary emphysema 8743 3001 J43.9 DLCO 42%, TLC 84%, secondary to nicotine dependence Sleep disorder 85327724 G47.9 need nocturnal study Vocal cord paralysis 302 385585 J38.01 Following with ENT Tobacco de pendence in remission 810091395 F17.201 40 PYH [id number] Kurtis Roberts MD [facility] [place] [place] [address] 07/18/2017 10:00:42 07/18/2017 12:04:58 Chronic obstructive pulmonary disease 99376032 J44.9 QIL505%, FVC94%, FEV1/FVC59 %, continue albuterol, Atrovent and Brovana via nebulizer. She did not start Pulmicort I am sure Incruse was not effective. She's up to date with flu shot Pulmonary emphysema 8743 3001 J43.9 DLCO 42%, TLC 84%, secondary to history of nicotine dependence . Solitary n odule of lung 536064750 R91.1 Need follow up in 1 year, 4 mm in NACHO Mammogram was unremarkab le, colonscopy 4 years ago was fine. will check PPD. Sleep disorder 43360445 G47.9 Nocturnal study showed sleep related hypoxemia. Would need O2 at night at 2L/M Tobacco de pendence in remission 960923348 F17.201 40 PYH, patient has already quit. [id number] Esthela Torre MD [facility] (Adult Med) [address] [place] [address] 67199-778 0 07/25/2017 15:38:26 07/25/2017 17:05:48 Cramp 49027724 R25.2 Tracheostomy present 302 999190 Z93.0 She wants the tracheosto my reversed and was seen by the rheumatolo gist, an autoimmune cause for her vocal cord paralysis has been ruled out. Anemia 729857289 D64.9 Chronic issue Tobacco de pendence in remission 094055745 F17.201 Diabetes m ellitus screening 134222273 Z13.1 Vocal cord dysfunction 399352053 R49.9 Surgery was recommende d [id number] Esthela Torre MD [facility] (Adult Med) [address] [place] [address] 26520-274 0 09/04/2017 16:12:16 09/04/2017 17:15:17 Productive cough 29014584 R05 Tracheitis 39799834 J04. 10 Cramp 29775620 R25.2 Arthritis 1205121 M19.90 Bilateral trigger fingers 0211155972 9812009 M65.30 I was able to reproduce this on her right thumb [id number] Kurtis Roberts MD [facility] [address] [place] [address] 10/17/2017 10:00:33 10/17/2017 13:03:07 Chronic obstructive pulmonary disease 74776148 J44.9 PQQ502%, FVC94%, FEV1/FVC59 %, continue albuterol, Atrovent and Brovana via nebulizer. She did not start Pulmicort I am sure Incruse was not effective. She's up to date with flu shot Pulmonary emphysema 8743 3001 J43.9 DLCO 42%, TLC 84%, secondary to history of nicotine dependence . Solitary n odule of lung 992132855 R91.1 Need follow up in 1 year, 06/2018- 4 mm in NACHO Mammogram was unremarkab le, colonscopy 4 years ago was fine. will check PPD. Sleep disorder 76039683 G47.9 Nocturnal study showed sleep related hypoxemia. Would need O2 at night at 2L/M Tobacco de pendence in remission 824751263 F17.201 40 PYH, patient has already quit. Tracheostomy present 302 541162 Z93.0 She's following with ENT. Chronic cough 59245658 R 05 Multifacto rial, will give symptomati c treatment. [id number] Fransisco Garsia MD [facility] (SYNTHETIC GEM PRESS OPERATOR) [address] [place] [address] 12/12/2017 10:34:30 12/12/2017 12:24:52 Gynecologic examination 25843317 Z01.419 Recurrent major depressive episodes, mild 869954287 F33.0 Screening for malignant neoplasm of breast 465302356 Z12.31 had mamm 10/2017 Screening for osteoporosis 532375106 Z13.820 Bladder mu scle dysfunction - overactive 765991571 N32.81 [id number] Kurtis Roberts MD [facility] [address] [place] [address] 01/09/2018 10:47:11 01/15/2018 13:52:39 Chronic obstructive pulmonary disease 22196599 J44.9 XDP358%, FVC94%, FEV1/FVC59 %, continue albuterol, Atrovent, pulmicort and Brovana via nebulizer. She did not start Pulmicort I am sure Incruse was not effective. She's up to date with flu shot Tracheostomy present 302 422238 Z93.0 She's following with ENT, she will get detrached next saturday Sleep disorder 64669295 G47.9 Nocturnal study showed sleep related hypoxemia. Would need O2 at night at 2L/M, she would need split sleep study after her trach is out Chronic cough 09680697 R 05 Multifacto rial, will give symptomati c treatment. Pulmonary emphysema 8743 3001 J43.9 DLCO 42%, TLC 84%, secondary to history of nicotine dependence . Solitary n odule of lung 217595217 R91.1 Need follow up in 1 year, 06/2018- 4 mm in NACHO Mammogram was unremarkab le, colonscopy 4 years ago was fine. will check PPD. Tobacco de pendence in remission 415494423 F17.201 40 PYH, patient has already quit. [id number] Kurtis Roberts MD [facility] [address] [place] [address] 01/30/2018 11:31:01 01/30/2018 12:55:14 Chronic obstructive pulmonary disease 83501647 J44.9 ROH700%, FVC94%, FEV1/FVC59 %, continue albuterol, Atrovent, pulmicort and Brovana via nebulizer. She did not start Pulmicort I am sure Incruse was not effective. She's up to date with flu shot Tracheostomy present 302 401158 Z93.0 She's following with ENT, S/P closure 01/14/18 Sleep disorder 84707730 G47.9 Nocturnal study showed sleep related hypoxemia. Would need O2 at night at 2L/M, she would need split sleep study after her trach is out in 2 months Chronic cough 06926329 R 05 Multifacto rial, will give symptomati c treatment. Patent is also was advised to use Flonase. Pulmonary emphysema 8743 3001 J43.9 DLCO 42%, TLC 84%, secondary to history of nicotine dependence . Solitary n odule of lung 835684701 R91.1 Need follow up in 1 year, 06/2018- 4 mm in NACHO Mammogram was unremarkab le, colonscopy 4 years ago was fine. will check PPD. Tobacco de pendence in remission 823539737 F17.201 40 PYH, patient has already quit. [id number] MD Elizabeth Matute (Adult Med) [address] [place] [address]31[address] 0 03/14/2018 17:01:50 03/17/2018 08:58:37 Dizziness and giddiness 204530219 R42 Otalgia of right ear 141 9817834 286155 H92.01 Benign ess ential hypertension 6624883 I10 Skin - halie ign mole and nevus 602079495 D22.9 [id number] [facility] [address] [place] [address]48[address] 0 04/11/2018 10:39:21 04/14/2018 09:07:14 Hyperplastic polyp of intestine 95983238 K63.89 Anemia 792765677 D64.9 Chronic issueColon oscopy 2014 Liver enzy mes level above reference range 966055689 R74.8 Impaired f asting glycemia 553639639 R73.01 Essential hypertension 98947212 I10 Stable [id number] Esthela Torre MD [facility] (Adult Med) [address] [place] [address] 06[address] 0 06/05/2018 09:25:51 06/05/2018 10:07:44 Administration of influenza vaccine 91306680 Z23 Anti-nucle ar factor detected 279639119 R76.8 Her ANTONIO was positive, her titer was however 1:40 (Neg?) Anemia 435324063 D64.9 Chronic issueColon oscopy 2014, a repeat is plannedEGD 05/16/2018 unremarkab le Chronic ob structive pulmonary disease 08451988 J44.9 Nasal congestion 1096619 0 R09.81 Allergy? URI? [id number] Bea Summers MD [facility] [address] [place] [address] 06/09/2018 10:15:36 06/09/2018 16:38:49 Chronic obstructive pulmonary disease 05346843 J44.9 KVB889%, FVC94%, FEV1/FVC59 %, continue albuterol, Atrovent, pulmicort and Air duo respiclick 113/14. Patient has quit using Brovana since insurance has quit caverning. She was advised to quit Pulmicort, rinse mouth after using Airduo and will check sleep study on the patient. Tracheostomy present 302 377377 Z93.0 She's following with ENT, S/P closure 01/14/18 Candidiasis of mouth 797 44518 B37.0 I will add Nystatin, patient to rinse mouth after using Airduo. Sleep disorder 92747614 G47.9 Nocturnal study showed sleep related hypoxemia. Would need O2 at night at 2L/M, she would need split sleep study Patient is having EDS, EDF and snoring. Chronic cough 84616806 R 05 Multifacto rial, will give symptomati c treatment. Patent is also was advised to use Flonase. Pulmonary emphysema 8743 3001 J43.9 DLCO 42%, TLC 84%, secondary to history of nicotine dependence . Solitary n odule of lung 170200503 R91.1 Need follow up in 1 year, 06/2018- 4 mm in NACHO Mammogram was unremarkab le, colonscopy 4 years ago was fine. will check PPD. Tobacco de pendence in remission 228684282 F17.201 40 PYH, patient has already quit. [id number] Bea Summers MD [facility] [address] [address] 08/28/2018 11:11:38 08/29/2018 14:15:56 Chronic obstructive pulmonary disease 09862182 J44.9 LEE897%, FVC94%, FEV1/FVC59 %, continue albuterol, Atrovent, and Air duo respiclick 113/14. Patient has quit using Brovana since insurance has quit caverning. She was advised to rinse mouth after using Airduo will get a new PFTs on the patient Tracheostomy present 302 578261 Z93.0 She's following with ENT, S/P closure 01/14/18 Sleep rela ross hypoxemia 7021581461 09035 G47.36 Patient would need O2 at night 2 L/M. her sleep study showed no JIMMIE Chronic cough 63330326 R 05 Multifacto rial, will give symptomati c treatment. Patent is also was advised to use Flonase. Pulmonary emphysema 8743 3001 J43.9 DLCO 42%, TLC 84%, secondary to history of nicotine dependence . Fibrosis of lung 7995597 1 J84.10 MInimal Solitary n odule of lung 296120798 R91.1 Need follow up in 1 year, 06/2018- [address] chest 06/2018 showed tiny pulmonary nodules bilaterall y,. need follow up CT in 1 year 06/2019( reviewed by me). Mammogram was unremarkab le, colonoscop y 4 years ago was fine. will Tobacco de pendence in remission 174162451 F17.201 40 PYH, patient has already quit. [id number] Esthela Torre MD [facility] (Adult Med) [address] [place] [address]42[address] 0 10/09/2018 09:19:13 10/09/2018 14:19:35 Migraine 64890908 G43.909 She has failed OTC NSAIDSImit nidia pRN, side effects were discussed Bronchitis 73848809 J40 Cramp 66826393 R25.2 Screening for malignant neoplasm of breast 521663095 Z12.31 [id number] Esthela Torre MD [facility] (Adult Med) [address] [place] [address] 19194[address]403 0 12/03/2018 14:55:28 12/04/2018 09:59:53 Chronic obstructive pulmonary disease 91009477 J44.9 History of hypercholesterolemia 084621182 Z86.39 History of tracheostomy 566757200 Z93.0 Vocal cord dysfunction 079633221 R49.9 S/p surgery Chronic re spiratory insufficiency 783238358 R06.89 Neuropathy 948673301 G62 .9 Essential hypertension 15306358 I10 Stable Recurrent major depressive episodes, mild 301940674 F33.0 Impaired f asting glycemia 745672369 R73.01 Patient on oxygen 128698 009 Z99.81 [id number] Bea Summers MD [facility] [address] [address] 01/01/2019 10:08:18 01/05/2019 08:19:59 Chronic cough 78004977 R05 Multifacto rial, will give symptomati c treatment. Patent is also was advised to use Flonase. Chronic ob structive pulmonary disease 55613002 J44.9 PTT223%, FVC94%, FEV1/FVC59 %(2017) repeated PFTs IPu467%, FVC 71%, FEV1/FVC 83%, DLCO 40% ( 2018), continue albuterol, Atrovent, and Air duo respiclick 113/14. Patient has quit using Brovana since insurance has quit caverning. She was advised to rinse mouth after using Airduo Tracheostomy present 302 137906 Z93.0 She's following with ENT, S/P closure 01/14/18 Sleep disorder 76613443 G47.9 Nocturnal study showed sleep related hypoxemia. Would need O2 at night at 2L/M, she would need split sleep study Patient is having EDS, EDF and snoring. Pulmonary emphysema 8743 3001 J43.9 DLCO 42%, TLC 84%, secondary to history of nicotine dependence . Fibrosis of lung 8960693 1 J84.10 MInimal Solitary n odule of lung 773370454 R91.1 Need follow up in 1 year, 06/2018- [address] chest 06/2018 showed tiny pulmonary nodules bilaterall y,. need follow up CT in 1 year 06/2019( reviewed by me). Mammogram was unremarkab le, colonoscop y 4 years ago was fine. will Tobacco de pendence in remission 318069037 F17.201 40 PYH, patient has already quit. Posterior rhinorrhea 758 72081 R09.82 I will add Flonase Restrictiv e lung disease 34430079 J98.4 TLC 75%, secondary to pulmonary firosis [id number] Esthela Torre MD [facility] (Adult Med) [address] [place] [address] 0 01/14/2019 10:12:17 01/14/2019 11:18:20 Carpal tunnel syndrome 93072463 G56.02 Subtle CTS on the EMG/NCS, I wonder if she has a cervical radiculopa thy although her neck symptoms are minimal Disorder o f lipid metabolism 900883651 E78.9 This is a chronic issue dating back to 2009, she was previously treated with Crestor and then Pravastati n, she cannot give me a good reason why she is not taking either medication . She is hypertensi ve, an ex-smoker and she is over 50.Continu e low CHO diet Restart Pravastati n 40mg po daily, side effects were discussedL abs in 6 weeks Cervical radiculopathy 12599677 M54.12 Inguinal pain 916521433 R10.2 Decreased hearing 282532 001 H91.93 She will call her ENT and let them know that she now has Medicare if they can get the test that he wanted done. [id number] Bea Summers MD [facility] [address] [place] [address] 02/26/2019 10:14:47 03/02/2019 10:32:22 Chronic obstructive pulmonary disease 29473574 J44.9 PBO086%, FVC94%, FEV1/FVC59 %(2016) repeated PFTs FSj179%, FVC 71%, FEV1/FVC 83%, DLCO 40% ( 2018), continue albuterol, Atrovent, and Air duo respiclick 113/14. Patient has quit using Brovana since insurance has quit caverning. She was advised to rinse mouth after using Airduo. Patient is having more congestion . She's worried about pneumonia. I will add Incruse ellipta to her regimen and check CXR. Patient would benefit from pulmonary rehab. Chronic cough 40399334 R 05 Multifacto rial, will give symptomati c treatment. Patent is also was advised to use Flonase. Tracheostomy present 302 265908 Z93.0 She's following with ENT, S/P closure 01/14/18 Sleep disorder 60698589 G47.9 Nocturnal study showed sleep related hypoxemia. Would need O2 at night at 2L/M, she had split sleep study 06/2018 which showed no JIMMIE. Pulmonary emphysema 8743 3001 J43.9 DLCO 42%, TLC 84%, secondary to history of nicotine dependence . Fibrosis of lung 7307792 1 J84.10 MInimal Solitary n odule of lung 125440554 R91.1 Need follow up in 1 year, 06/2018- [address] chest 06/2018 showed tiny pulmonary nodules bilaterall y,. need follow up CT in 1 year 06/2019( reviewed by me). Mammogram was unremarkab le, colonoscop y 4 years ago was fine. will Tobacco de pendence in remission 562673385 F17.201 40 PYH, patient has already quit. Posterior rhinorrhea 758 85131 R09.82 She has been using Flonase and I will add Singulair Restrictiv e lung disease 53716991 J98.4 TLC 75%, secondary to pulmonary fibrosis [id number] MD Elizabeth Matute (Adult Med) [address] [place] [address] 03/10/2019 09:39:36 03/10/2019 10:15:29 Degeneration of cervical intervertebral disc 89830732 M50.30 DiscussedM RI if her symptoms worsen Carpal mehdi chantale syndrome 84437755 G56.02 Subtle CTS on the EMG/NCS, I wonder if she has a cervical radiculopa thy although her neck symptoms are minimal. Chronic ob structive pulmonary disease 29008794 J44.9 Pulmonary rehabShort course of Prednisone if her respirator y symptoms worsen. Chronic cough 12736215 R 05 See the patient's note. Malaise and fatigue 2717 66080 R53.81 Diabetes m ellitus screening 920679531 Z13.1 Stenosis o f intervertebral foramina 8820656154 09 M99.9 DiscussedM RI if her symptoms persist [id number] [facility] [address] [place] [address] 66280-482 0 05/22/2019 12:23:30 05/22/2019 14:38:24 Bloody nipple discharge 959196795 N64.52 Normal MMG 11/2018, she has been referred to the surgeon, they however require imagingCyt ology was negative, but there were bacteria colonies identified , she has been treated with Bactrim and she should follow up. Chronic ob structive pulmonary disease 33426945 J44.9 Bronchitis 22116800 J40 Persistent cough 0213197 02 R05 [id number] MD Elizabeth Matute (Adult Med) [address] [place] [address] 02262-129 0 07/14/2019 09:46:58 07/14/2019 11:03:43 Administration of influenza vaccine 86848596 Z23 Mixed anxi ety and depressive disorder 893919037 F41.8 Screening for malignant neoplasm of cervix 568073090 Z12.4 Tooth disorder 845670915 K08.9 Dentist Bloody nip ple discharge 996140731 N64.52 She denies any further bleeding.N ormal MMG 11/2018, she has been referred to the surgeon.tC ytology was negative, but there were bacteria colonies identified , she has been treated with Bactrim.Di agnostic MMG and US of the breast 06/08/19, benign findings [id number] MD Elizabeth Kinsey (SYNTHETIC G[employer] PRESS OPERATOR) [address] [place] [address]17[address]118 0 08/05/2019 11:15:08 08/06/2019 10:49:43 Gynecologic examination 41116775 Z01.419 Exposure t o sexually transmissible disorder 427710538 Z20.2 Menopausal syndrome 1237 10566 N95.9 Cervical intraepithelial neoplasia 165647550 N87.9 Bloody nip ple discharge 838621527 N64.52 Human jerrod lloma virus infection 216038018 R87.810 Mammography abnormal 168 396682 R92.8 Candidiasis of skin 4988 3006 B37.2 [id number] MD Elizabeth Matute (Adult Med) [address] [place] [address]10-989 0 08/25/2019 09:55:15 08/26/2019 09:47:45 Chronic obstructive pulmonary disease 31887311 J44.9 Neuropathy 514436179 G62 .9 Her NCS 12/2018 suggests evolving CTS, although her symptoms involve her entire left hand.Cock up splint Benign hypertension 1072 5009 I10 Disorder o f lipid metabolism 377019735 E78.9 Continue low CHO diet and Pravastati n 40 mg po daily. Anemia 095935254 D64.9 Chronic issueColon oscopy 2014 and 84956961HT D 05/16/2018 unremarkab le [id number] Bea Summers [facility] [address] [place] [address]80[address] 2 09/24/2019 11:41:33 09/28/2019 15:29:18 Chronic obstructive pulmonary disease 16098829 J44.9 CXL663%, FVC94%, FEV1/FVC59 %(2017) repeated PFTs NKf062%, FVC 71%, FEV1/FVC 83%, DLCO 40% ( 2018), continue albuterol, Atrovent, and Air duo respiclick 113/14. Patient has quit using Brovana since insurance has quit caverning. She was advised to rinse mouth after using Airduo. Patient is having more congestion . She's worried about pneumonia. I will add Incruse ellipta to her regimen and check CXR. Patient would benefit from pulmonary rehab. Chronic cough 26792608 R 05 Multifacto rial, will give symptomati c treatment. Patent is also was advised to use Flonase. Tracheostomy present 302 856882 Z93.0 She's following with ENT, S/P closure 01/14/18 Sleep disorder 09147664 G47.9 Nocturnal study showed sleep related hypoxemia. Would need O2 at night at 2L/M, she had split sleep study 06/2018 which showed no JIMMIE. Pulmonary emphysema 8743 3001 J43.9 DLCO 42%, TLC 84%, secondary to history of nicotine dependence . Fibrosis of lung 3897067 1 J84.10 MInimal Solitary n odule of lung 053451722 R91.1 Need follow up in 1 year, 06/2018- [address] chest 06/2018 showed tiny pulmonary nodules bilaterall y,. need follow up CT in 1 year 06/2019( reviewed by me). Mammogram was unremarkab le, colonoscop y 4 years ago was fine. will Tobacco de pendence in remission 950760656 F17.201 40 PYH, patient has already quit. Posterior rhinorrhea 758 30224 R09.82 She has been using Flonase and I will add Singulair Restrictiv e lung disease 94556271 J98.4 TLC 75%, secondary to pulmonary fibrosis [id number] MD Elizabeth Matute (Adult Med) [address] [place] [address] 41615-892 0 02/24/2020 09:38:17 02/25/2020 13:43:55 Osteopenia 039674713 M85.80 Disorder o f lipid metabolism 422248087 E78.9 Continue low CHO diet and Pravastati n 40 mg po daily. [id number] MD Elizabeth Matute (Adult Med) [address] [place] [address] 09282[address]682 0 03/14/2020 14:07:14 03/15/2020 07:39:37 Chronic obstructive pulmonary disease 28023646 J44.9 She needs a new nebulizer 4/he has asked that her Rx medication s for her nebulizer should remain at her current local pharmacy. Chronic re spiratory insufficiency 160701997 R06.89 [id number] Bea Summers MD [facility] [address] [place] [address] 04/14/2020 12:12:53 04/14/2020 17:01:07 Chronic obstructive pulmonary disease 79491727 J44.9 HYX062%, FVC94%, FEV1/FVC59 %(2017) repeated PFTs GXj020%, FVC 71%, FEV1/FVC 83%, DLCO 40% ( 2018), continue albuterol, Atrovent, and Air duo respiclick /14. Patient has quit using Brovana since insurance has quit caverning. She was advised to rinse mouth after using Airduo. Patient is having more congestion . She's worried about pneumonia. I will add Incruse ellipta to her regimen and check CXR. Patient would benefit from pulmonary rehab. Pulmonary emphysema 8743 3001 J43.9 DLCO 42%, TLC 84%, secondary to history of nicotine dependence . Tobacco de pendence in remission 303330023 F17.201 40 PYH, patient has already quit. Fibrosis of lung 3670319 1 J84.10 MInimal Restrictiv e lung disease 96448474 J98.4 TLC 75%, secondary to pulmonary fibrosis Sleep disorder 70829638 G47.9 Nocturnal study showed sleep related hypoxemia. Would need O2 at night at 2L/M, she had split sleep study 06/2018 which showed no JIMMIE. Tracheostomy present 302 634252 Z93.0 She's following with ENT, S/P closure 01/14/18 Posterior rhinorrhea 758 18779 R09.82 She has not been able to use Flonase and I will add Singulair Chronic cough 63155822 R 05 Multifacto rial, will give symptomati c treatment. Patent is also was advised to use Flonase. Solitary n odule of lung 156625218 R91.1 Need follow up in 1 year, 06/2018- [address] chest 06/2018 showed tiny pulmonary nodules bilaterall y,. need follow up CT in 1 year 06/2019( reviewed by me). Mammogram was unremarkab le, colonoscop y 4 years ago was fine. will [id number] Esthela Torre MD [facility] (Adult Med) [address] [place] [address] 05/03/2020 14:05:53 05/04/2020 12:09:06 Screening for malignant neoplasm of breast 228508470 Z12.31 A follow up MMG was already ordered by her breast surgeon, Dr Chichi Elmore ([facility]) Osteoporosis 99686376 M8 1.0 Benign hypertension 1072 5009 I10 [id number] Bea Summers MD [facility] [address] [place] [address] 08/04/2020 12:13:09 08/08/2020 07:52:28 Chronic obstructive pulmonary disease 51175493 J44.9 HHA370%, FVC94%, FEV1/FVC59 %(2016) repeated PFTs BKw696%, FVC 71%, FEV1/FVC 83%, DLCO 40% ( 2018), continue albuterol, Atrovent, and Air duo respiclick 113/14. Patient has quit using Brovana since insurance has quit caverning. She was advised to rinse mouth after using Airduo. Patient is having more congestion . She's worried about pneumonia. I will add Incruse ellipta to her regimen and check CXR. Patient would benefit from pulmonary rehab. Restrictiv e lung disease 33318145 J98.4 TLC 75%, secondary to pulmonary fibrosis Pulmonary emphysema 8743 3001 J43.9 DLCO 42%, TLC 84%, secondary to history of nicotine dependence . Tracheostomy present 302 966988 Z93.0 She's following with ENT, S/P closure 01/14/18 Posterior rhinorrhea 758 73999 R09.82 She has not been able to use Flonase and I will add Singulair Allergic rhinitis 997572 04 J30.9 See below. Tobacco de pendence in remission 214468281 F17.201 40 PYH, patient has already quit. Sleep disorder 28888536 G47.9 Nocturnal study showed sleep related hypoxemia. Would need O2 at night at 2L/M, she had split sleep study 06/2018 which showed no JIMMIE. Chronic cough 99654272 R 05 Multifacto rial, will give symptomati c treatment. Patent is also was advised to use Flonase. Solitary n odule of lung 470761677 R91.1 Need follow up in 1 year, 06/2018- [address] chest 06/2018 showed tiny pulmonary nodules bilaterall y,. need follow up CT in 1 year 06/2019( reviewed by me). Mammogram was unremarkab le, colonoscop y 4 years ago was fine. LDCT 06/2020, no pulmonary nosules [id number] Bea Summers MD [facility] [address] [place] [address] 12/01/2020 10:25:58 12/01/2020 17:56:56 Posterior rhinorrhea 16832771 R09.82 She has not been able to use Flonase and I will continue Singulair Allergic rhinitis 895590 04 J30.9 See below. Dyspnea on exertion 6084 5006 R06.09 She's doing better Chronic cough 25984607 R 05 Multifacto rial, will give symptomati c treatment. Patent is also was advised to use Flonase. Sleep disorder 64531376 G47.9 Nocturnal study showed sleep related hypoxemia. Would need O2 at night at 2L/M, she had split sleep study 06/2018 which showed no JIMMIE. Tobacco de pendence in remission 559803648 F17.201 40 PYH, patient has already quit. Tracheostomy present 302 387943 Z93.0 She's following with ENT, S/P closure 01/14/18 Chronic ob structive pulmonary disease 13071094 J44.9 HFB118%, FVC94%, FEV1/FVC59 %(2016) repeated PFTs MFc854%, FVC 71%, FEV1/FVC 83%, DLCO 40% ( 2018), continue albuterol, Atrovent, and Air duo respiclick 113/14. Patient has quit using Brovana since insurance has quit caverning. She was advised to rinse mouth after using Airduo. Patient is having more congestion . She's worried about pneumonia. I will add Incruse ellipta to her regimen and check CXR. Patient would benefit from pulmonary rehab. repeated PFTs showed FEV1 80%, FVC 77%, FEV1/FVC 83%, DLCO41%, BD-(2019) Restrictiv e lung disease 15927755 J98.4 TLC 75%, secondary to pulmonary fibrosis, now 78% Pulmonary emphysema 8743 3001 J43.9 DLCO 42%, TLC 84%, secondary to history of nicotine dependence . Solitary n odule of lung 187782626 R91.1 Need follow up in 1 year, 06/2018- [address] chest 06/2018 showed tiny pulmonary nodules bilaterall y,. need follow up CT in 1 year 06/2019( reviewed by me). Mammogram was unremarkab le, colonoscop y 4 years ago was fine. LDCT 06/2020, no pulmonary nodules COVID-19 401947270 U07.1 She's recuperati ng Overweight 522984302 E66 .3 ERV 24% [id number] MD Elizabeth Matute (Adult Med) [address] [place] [address] 0 02/24/2021 09:23:48 02/27/2021 09:55:35 Chronic obstructive pulmonary disease 12418229 J44.9 Screening for malignant neoplasm of breast 424457858 Z12.31 Previously seen by the breast surgeon, Dr Chichi Elmore ([facility]) Malaise and fatigue 2717 44940 R53.81 Decreased hearing 790141 001 H91.93 She has a hearing test scheduled with her ENT surgeon Medication monitoring 39 1901327 Z51.81 Benign hypertension 1072 5009 I10 Screening for malignant neoplasm of cervix 930352824 Z12.4 Disorder o f lipid metabolism 618653612 E78.9 Continue low CHO diet and Pravastati n 40 mg po daily. Pain of bi lateral hands 0059117362 1191794 M79.641 M79.642 Hiatal hernia 67116913 K 44.9 Adrenal adenoma 58564741 8 D35.02 [id number] MD Elizabeth Matute (Adult Med) [address] [place] [address] 0 04/14/2021 09:27:35 04/14/2021 18:50:18 Disorder of lipid metabolism 797151210 E78.9 Continue low CHO diet and increase Pravastati n to 80 mg po daily. Mammography abnormal 168 662545 R92.8 Abnormal MMG of the L. mid breast 6/17/2021A dditional views needed and orderedAbn ormal diagnostic MMG and US 03/23/2021i opsy scheduledG eneral surgery consultati on done Impaired f asting glycemia 089161596 R73.01 [id number] Bea Summers MD [facility] [address] [place] [address] 06/22/2021 11:25:06 06/22/2021 17:33:25 Tracheostomy present 874636186 Z93.0 She's following with ENT, S/P closure 01/14/18 Chronic cough 71720486 R 05 Multifacto rial, will give symptomati c treatment. Patent is also was advised to use Flonase. Posterior rhinorrhea 758 72779 R09.82 She has not been able to use Flonase and I will continue Singulair Allergic rhinitis 476895 04 J30.9 See below. Tobacco de pendence in remission 497306377 F17.201 40 PYH, patient has already quit. Sleep disorder 63794003 G47.9 Nocturnal study showed sleep related hypoxemia. Would need O2 at night at 2L/M, she had split sleep study 06/2018 which showed no JIMMIE. Solitary n odule of lung 018759962 R91.1 Need follow up in 1 year, 06/2018- [address] chest 06/2018 showed tiny pulmonary nodules bilaterall y,. need follow up CT in 1 year 06/2019( reviewed by me). Mammogram was unremarkab le, colonoscop y 4 years ago was fine. LDCT 06/2020, no pulmonary nodules History of SARS-CoV-2 29 26122575 16754671 Z86.16 07/2020 Chronic ob structive pulmonary disease 18815816 J44.9 PWQ110%, FVC94%, FEV1/FVC59 %(2016) repeated PFTs ERq921%, FVC 71%, FEV1/FVC 83%, DLCO 40% ( 2017), continue albuterol, Atrovent, and Air duo respiclick 113/14. She was advised to rinse mouth after using Airduo. I will add Inruse ellipta to her regimen. repeated PFTs showed FEV1 80%, FVC 77%, FEV1/FVC 83%, DLCO41%, BD-(2019) Restrictiv e lung disease 40152191 J98.4 TLC 75%, secondary to pulmonary fibrosis, now 78% Pulmonary emphysema 8743 3001 J43.9 DLCO 42%, TLC 84%, secondary to history of nicotine dependence . Overweight 720136994 E66 .3 ERV 24% [id number] MD Elizabeth Kinsey (SYNTHETIC GEM PRESS OPERATOR) [address] [place] [address] 30678[address]673 0 06/20/2021 10:20:16 06/23/2021 08:11:01 Recurrent major depressive episodes, mild 990057481 F33.0 Gynecologi c examination 36380739 Z01.419 Z11.51 Human jerrod lloma virus infection 068404324 R87.810 Abnormal c ervical Papanicolaou smear 456171012 R87.612 R87.820 Administra tion of influenza vaccine 94144247 Z23 [id number] MD Elizabeth Matute (Adult Med) [address] [place] [address]21[address] 0 09/11/2021 09:28:10 09/12/2021 08:08:29 Disorder of lipid metabolism 947908058 E78.9 Continue low CHO diet and increase Pravastati n to 80 mg po daily. Immunization advised 310 712356 Z71.9 Congestion of nasal sinus 11122417 R09.81 Pulmonary emphysema 8743 3001 J43.9 Calcificat ion of coronary artery 494757658 I25.[address] She follows up with Dr Ortiz Adrenal adenoma 20031740 8 D35.02 Stable [id number] [facility] (Peds) [address] [place] [address] 33049[address] 0 09/11/2021 10:15:20 09/12/2021 13:42:17 Administration of SARS-CoV-2 mRNA vaccine 2430116293 Z23 [id number] Bea Summers MD [facility] [address] [place] [address] 2 10/19/2021 09:57:41 10/20/2021 09:20:39 Restrictive lung disease 39527380 J98.4 TLC 75%, secondary to pulmonary fibrosis, now 78% Chronic ob structive pulmonary disease 64976377 J44.9 JRO232%, FVC94%, FEV1/FVC59 %(2017) repeated PFTs OIg219%, FVC 71%, FEV1/FVC 83%, DLCO 40% ( 2018), continue albuterol, Atrovent, and Air duo respiclick 113/14. She was advised to rinse mouth after using Airduo. I will add Inruse ellipta to her regimen. repeated PFTs showed FEV1 80%, FVC 77%, FEV1/FVC 83%, DLCO41%, BD-(2019) Pulmonary emphysema 8743 3001 J43.9 DLCO 42%, TLC 84%, secondary to history of nicotine dependence . History of tracheostomy 968435244 Z93.0 S/P closure , closure 01/14/18 Sleep disorder 02893161 G47.9 Nocturnal study showed sleep related hypoxemia. Would need O2 at night at 2L/M, she had split sleep study 06/2018 which showed no JIMMIE. Allergic rhinitis 050795 04 J30.9 See below. Solitary n odule of lung 323322488 R91.1 Need follow up in 1 year, 06/2018- [address] chest 06/2018 showed tiny pulmonary nodules bilaterall y,. need follow up CT in 1 year 06/2019( reviewed by me). Mammogram was unremarkab le, colonoscop y 4 years ago was fine. LDCT 06/2020, no pulmonary nodules Tobacco de pendence in remission 894709257 F17.201 40 PYH, patient is still smoking intermitte ntly, counseled to quit 5 min History of SARS-CoV-2 29 71646743 86163566 Z86.16 07/2020 Chronic cough 52748727 R 05.3 Multifacto rial Posterior rhinorrhea 758 68993 R09.82 She has not been able to use Flonase and I will continue Singulair [id number] Esthela Torre MD [facility] (Adult Med) [address] [place] [address]12[address] 0 03/01/2022 09:22:42 03/02/2022 06:50:49 Screening mammography of bilateral breasts 4814867050 90515 Z12.31 Immunization advised 310 637437 Z71.9 Benign hypertension 1072 5009 I10 Disorder o f lipid metabolism 326763530 E78.9 Continue low CHO diet and Pravastati n 80 mg po daily. Abdominal pain 93007201 R10.9 NL colonoscop y 2018GI consultati on as requested or a CT scan, she has agreed to have the latter. General ex amination of patient 584106209 Z00.01 Diastolic dysfunction 35 59667 I51.9 [id number] [facility] [address] [place] [address] 03/19/2022 10:53:07 03/19/2022 15:01:41 Chronic obstructive pulmonary disease 39086937 J44.9 XTB905%, FVC94%, FEV1/FVC59 %(2016) repeated PFTs MDm272%, FVC 71%, FEV1/FVC 83%, DLCO 40% ( 2017), continue albuterol, Atrovent, and Air duo respiclick 113/14. She was advised to rinse mouth after using Airduo. I will continue Inruse ellipta to her regimen. repeated PFTs showed FEV1 80%, FVC 77%, FEV1/FVC 83%, DLCO41%, BD-(2019), repeated PFTs showed FEV1/ 63%, FVC , FEV1/FVC 66%, DLCO 38%, BD+(2021), UP to date with COVID-19 Restrictiv e lung disease 48293829 J98.4 TLC 75%, secondary to pulmonary fibrosis, now 78%, not seen in 2021 Sleep disorder 52371737 G47.9 Nocturnal study showed sleep related hypoxemia. Would need O2 at night at 2L/M, she had split sleep study 06/2018 which showed no JIMMIE. Allergic rhinitis 114896 04 J30.9 See below. Solitary n odule of lung 068399680 R91.1 Need follow up in 1 year, 06/2018- [address] chest 06/2018 showed tiny pulmonary nodules bilaterall y,. need follow up CT in 1 year 06/2019( reviewed by me). Mammogram was unremarkab le, colonoscop y 4 years ago was fine. LDCT 06/2020, no pulmonary nodulesShe 's going for CT chest 03/20 Chest over-expanded 2496 41264 Q67.8 127% TLC Air trapping 46305148 J9 8.8 RV 227% Overweight 335190189 E66 .3 ERV 24% History of tracheostomy 141836077 Z93.0 S/P closure , closure 01/14/18 Posterior rhinorrhea 758 74704 R09.82 She has not been able to use Flonase and I will continue Singulair Chronic cough 56172327 R 05.3 Multifacto rial History of SARS-CoV-2 29 65289126 27365919 Z86.16 07/2020 Pulmonary emphysema 8743 3001 J43.9 DLCO 42%, TLC 84%, secondary to history of nicotine dependence . 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 Adrenal Adenoma, Colitis, R. ovarian cyst and Pelvic lymphadeno leif.[place] noscopy 2017Shdann has a SHELL TRIM TOOL SETTER appointmen t on 05/04/2022 Chronic anemia 386472092 D64.9 Chronic issueColon oscopy 2014 and 29168462LQ D 05/16/2018 unremarkab le Proteinuria 65980853 R80 .9 Mass of soft tissue 4449 32634 R22.9 [id number] HUGO LEON (SYNTHETIC GEM PRESS OPERATOR) [address] [place] [address]38[address] 0 05/09/2022 09:39:32 05/10/2022 11:09:52 Gynecologic examination 47863663 Z01.419 Unremarkab le gynecologi c exam today.Cerv ical cancer screening: Last Pap May 2021 unsatisfac tory, HPV+, Pap updated todayBreas t cancer screening: Mammogram completed on 05/01/22, BIRADS 1. Discussed SBEColonos copy: UTD per patientSTI screening: NA, patient not sexually activeDiet /exercise: Counseled regarding importance of physical activity, healthy diet and appropriat e calcium intake. On alendronat e per PCP. Counseled on Kegel exercises. Pelvic lymphadenopathy 022387169 R59.0 CT abd/pelvis 03/20/22 with pelvic LAD and 12mm R ovarian cyst. Follow up PET scan on 05/03 showed mild symmetric lymph node enlargemen t w/o uptake, likely reactive. PE today unremarkab le. Discussed with Dr. Ken who is in agreement that this is likely non-concer ash. Will follow up with TVUS. Cyst of right ovary 1223 926028 5399602 N83.201 12 mm R ovarian cyst on 03/[address] Will monitor with transvagin al US. [id number] Esthela Torre MD [facility] (Adult Med) [address] [place] [address] 05/23/2022 10:10:11 05/23/2022 14:59:19 Mass of soft tissue 440792519 R22.9 US 05/01/2022 2.3 cm massShe was seen by the surgeon and the plan is a resection. Pelvic lymphadenopathy 197320442 R59.0 CT A&P 03/20/2022 Pelvic lymphadeno leif, PET scan suggests mild uptake. Body mass index 25-29 - overweight 335003849 Z68.27 Immunization advised 310 167022 Z71.9 Toothache 82657025 K08.8 9 On Clindamyci n from her dentistSho rt course of Tylenol #3, no RF [id number] [facility] [address] [address] 07/09/2022 10:34:55 07/09/2022 12:40:20 Chronic obstructive pulmonary disease 48740767 J44.9 DVH779%, FVC94%, FEV1/FVC59 %(2016) repeated PFTs SPf166%, FVC 71%, FEV1/FVC 83%, DLCO 40% ( 2017), continue albuterol, Atrovent, and Air duo respiclick 113/14. She was advised to rinse mouth after using Airduo. I will continue Inruse ellipta to her regimen. repeated PFTs showed FEV1 80%, FVC 77%, FEV1/FVC 83%, DLCO41%, BD-(2019), repeated PFTs showed FEV1/ 63%, FVC , FEV1/FVC 66%, DLCO 38%, BD+(2021), UP to date with COVID-19, i will repeat PFT Chest over-expanded 2496 51591 Q67.8 127% TLC Air trapping 18574730 J9 8.8 RV 227% Nicotine dependence 5629 4008 F17.200 40 PYH, counsled to quit for 5 minutes. Sleep disorder 91739336 G47.9 Nocturnal study showed sleep related hypoxemia. Would need O2 at night at 2L/M, she had split sleep study 06/2018 which showed no JIMMIE. Sleep rela ross hypoxemia 7442239672 79323 G47.36 Patient would need O2 at night 2 L/M. her sleep study showed no JIMMIE Pulmonary emphysema 8743 3001 J43.9 DLCO 42%, TLC 84%, secondary to history of nicotine dependence . Restrictiv e lung disease 55657820 J98.4 TLC 75%, secondary to pulmonary fibrosis, now 78%, not seen in 2021 History of tracheostomy 888950565 Z93.0 S/P closure , closure 01/14/18 History of SARS-CoV-2 29 98913010 97651131 Z86.16 07/2020 Posterior rhinorrhea 758 71447 R09.82 She has not been able to use Flonase and I will continue Singulair Chronic hoarseness 27007 86509 105 R49.0 Secondary to vocal cord paralysis. Chronic cough 59109304 R 05.3 Multifacto rial Solitary n odule of lung 489736335 R91.1 Need follow up in 1 year, 06/2018- [address] chest 06/2018 showed tiny pulmonary nodules bilaterall y,. need follow up CT in 1 year 06/2019( reviewed by me). Mammogram was unremarkab le, colonoscop y 4 years ago was fine. LDCT 06/2020, no pulmonary nodules. LDCT 2020, unremarkab le. 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 Body mass index 25-29 - overweight 230870891 Z68.27 [id number] [facility] (Peds) [address] [place] [address] 07/13/2022 09:57:46 07/16/2022 13:31:53 Administration of SARS-CoV-2 vaccine 5577574247 Z23 [id number] Bea Summers MD [facility] [address] [place], [place] [address] 12/06/2022 10:56:02 12/06/2022 12:46:44 History of SARS-CoV-2 [id number] 52410765 Z86.16 07/2020 and 10/2022, patient is having trouble with congestion . I will give the patient medrol raya Chronic ob structive pulmonary disease 64633080 J44.9 MMO486%, FVC94%, FEV1/FVC59 %(2016) repeated PFTs JOu208%, FVC 71%, FEV1/FVC 83%, DLCO 40% ( 2017), continue albuterol, Atrovent, and Air duo respiclick 113/14. She was advised to rinse mouth after using Airduo. I will continue Inruse ellipta to her regimen. repeated PFTs showed FEV1 80%, FVC 77%, FEV1/FVC 83%, DLCO41%, BD-(2019), repeated PFTs showed FEV1/ 63%, FVC , FEV1/FVC 66%, DLCO 38%, BD+(2021), UP to date with COVID-19, i will repeat PFT Chest over-expanded 2496 54203 Q67.8 127% TLC Air trapping 16888784 J9 8.8 RV 227% Nicotine dependence 5629 4008 F17.200 40 PYH, counsled to quit for 5 minutes. Chronic cough 20486950 R 05.3 Multifacto rial Posterior rhinorrhea 758 08803 R09.82 She has not been able to use Flonase and I will continue Singulair Chronic hoarseness 61494 15694 105 R49.0 Secondary to vocal cord paralysis. Solitary n odule of lung 805757422 R91.1 Need follow up in 1 year, 06/2018- [address] chest 06/2018 showed tiny pulmonary nodules bilaterall y,. need follow up CT in 1 year 06/2019( reviewed by me). Mammogram was unremarkab le, colonoscop y 4 years ago was fine. LDCT 06/2020, no pulmonary nodules. LDCT 2020, unremarkab le. PET 04/2022, unremarkab le I will repeat LDCT 2022 Restrictiv e lung disease 72130574 J98.4 TLC 75%, secondary to pulmonary fibrosis, now 78%, not seen in 2021 Pulmonary emphysema 8743 3001 J43.9 DLCO 42%, TLC 84%, secondary to history of nicotine dependence . Dyspnea on exertion 6084 5006 R06.09 She's doing better Sleep rela ross hypoxemia 2190580914 71770 G47.36 Patient would need O2 at night 2 L/M. her sleep study showed no JIMMIE Sleep disorder 59094535 G47.9 Nocturnal study showed sleep related hypoxemia. Would need O2 at night at 2L/M, she had split sleep study 06/2018 which showed no JIMMIE. History of tracheostomy 228226459 Z93.0 S/P closure , closure 01/14/18 [id number] Esthela Torre MD [facility] (Adult Med) [address] [place] [address] 01/03/2023 12:36:00 01/04/2023 14:21:05 General examination of patient 446157412 Z00.01 Osteoporosis 76966553 M8 1.0 Disorder o f lipid metabolism 638745210 E78.9 Continue low CHO diet and Pravastati n 80 mg po daily. Allergic rhinitis 559676 04 J30.9 Nicotine dependence 5629 4008 F17.200 Immunization advised 310 002949 Z71.9 History of chickenpox 16 6926280 Z86.19 Screening for malignant neoplasm of breast 975552025 Z12.31 Previously seen by the breast surgeon, Dr Chichi Elmore ([facility]) History of SARS-CoV-2 29 33964605 49016110 Z86.16 10/24/2022 [id number] [facility] [address] [place] [address] 03/07/2023 11:15:16 03/07/2023 13:14:46 Chronic obstructive pulmonary disease 02592804 J44.9 XCO968%, FVC94%, FEV1/FVC59 %(2016) repeated PFTs DKt545%, FVC 71%, FEV1/FVC 83%, DLCO 40% ( 2017), continue albuterol, Atrovent, and Air duo respiclick /. She was advised to rinse mouth after using Airduo. I will continue Inruse ellipta to her regimen. repeated PFTs showed FEV1 80%, FVC 77%, FEV1/FVC 83%, DLCO41%, BD-(2019), repeated PFTs showed FEV1/ 63%, FVC , FEV1/FVC 66%, DLCO 38%, BD+(2021), UP to date with COVID-19, i will repeat PFT Nicotine dependence 5629 4008 F17.200 40 PYH, counsled to quit for 5 minutes. Chronic hoarseness 78508 87295 105 R49.0 Secondary to vocal cord paralysis. Vocal cord paralysis 302 958677 J38.01 Following with ENT Solitary n odule of lung 742841729 R91.1 Need follow up in 1 year, 06/2018- [address] chest 06/2018 showed tiny pulmonary nodules bilaterall y,. need follow up CT in 1 year 06/2019( reviewed by me). Mammogram was unremarkab le, colonoscop y 4 years ago was fine. LDCT 06/2020, no pulmonary nodules. LDCT 2020, unremarkab le. PET 04/2022, unremarkab le LDCT 2022 showed benign pattern, will repeat LDCT 12/2023. Anxiety 22586812 F41.9 History of tracheostomy 258592114 Z93.0 S/P closure , closure 01/14/18 History of SARS-CoV-2 29 06684434 62041274 Z86.16 07/2020 and 10/2022, patient is having trouble with congestion . I will give the patient delano dos santos Allergic rhinitis 331969 04 J30.9 See below. Posterior rhinorrhea 758 95244 R09.82 She has been on Flonase and Singulair Chronic cough 03829357 R 05.3 Multifacto rial Chest over-expanded 2496 00427 Q67.8 127% TLC Air trapping 96685146 J9 8.8 RV 227% Pulmonary emphysema 8743 3001 J43.9 DLCO 42%, TLC 84%, secondary to history of nicotine dependence . Dyspnea on exertion 6084 5006 R06.09 She's doing better Restrictiv e lung disease 98422589 J98.4 TLC 75%, secondary to pulmonary fibrosis, now 78%, not seen in 2021 Sleep rela ross hypoxemia 8575562068 84970 G47.36 Patient would need O2 at night 2 L/M. her sleep study showed no JIMMIE Sleep disorder 43891327 G47.9 Nocturnal study showed sleep related hypoxemia. Would need O2 at night at 2L/M, she had split sleep study 06/2018 which showed no JIMMIE. [id number] MD [facility] (Adult Med) [address] [place] [address] 0 07/02/2023 11:40:21 07/05/2023 13:55:03 Administration of influenza vaccine 89963389 Z23 Carotid ar micheline stenosis 21407200 I65.29 Chronic anemia 542618815 D64.9 Normal EGD on 05/16/2018N ormal Colonoscop y 07/02/2018 Hb 11 on 05/28/2023Hb solubility neg 04/02/2022 nemia panel nl on 04/02/2022 OV 08/25/2019 Chronic issueColon oscopy 2015 and 74315227RO D 05/16/2018 unremarkab le Dependence on supplemental oxygen 0899013958 07 Z99.81 Nicotine dependence 5629 4008 F17.200 Impaired f asting glycemia 507028638 R73.01 Body mass index 25-29 - overweight 207704443 Z68.27 Decreased hearing 164068 001 H91.93 She had an abnormal hearing test in the past and may have never followed up with the audiologis t. [id number] MD [facility] (Adult Med) [address] [place] [address] 0 08/13/2023 11:18:00 08/14/2023 11:32:38 Chronic anemia 644949500 D64.9 Labs 07/02/2023 Hb 12.2 / Hct 40 OV 07/02/2023 Normal EGD on 05/16/2018N ormal Colonoscop y 07/02/2018 Hb 11 on 05/28/2023Hb solubility neg 04/02/2022 nemia panel nl on 04/02/2022 OV 08/25/2019 Chronic issueColon oscopy 2014 and 93369897BQ D 05/16/2018 unremarkab le Impaired f asting glycemia 355889909 R73.01 HBA1C 6.0%Detail ed discussion Immunization advised 310 161593 Z71.9 Serum lact ate dehydrogenase level above reference range 817204870 R74.02 Body mass index 25-29 - overweight 052647200 Z68.27 Her ideal BMI of 24 and weight of 130 were discussed [id number] [facility] (Peds) [address] [place] [address] 0 08/21/2023 12:10:30 08/25/2023 10:35:14 Administration of SARS-CoV-2 mRNA vaccine 2243352003 Z23 [id number] MD [facility] (Adult Med) [address] [place] [address] 0 10/21/2023 09:54:44 10/24/2023 09:45:54 History of pancreatitis 5115763645 9107 Z87.19 Her 09/26/2023 FLP was normalMeds ?Alcohol?C heck US and CT reports Medication monitoring 39 9498523 Z51.81 Dental caries 36996462 K 02.9 Chronic ob structive pulmonary disease 87827993 J44.9 Allergic rhinitis 466406 04 J30.9 Chronic anemia 114398929 D64.9 Labs 07/02/2023 Hb 12.2 / Hct 40 OV 07/02/2023 Normal EGD on 05/16/2018N ormal Colonoscop y 07/02/2018 Hb 11 on 05/28/2023Hb solubility neg 04/02/2022 nemia panel nl on 04/02/2022 OV 08/25/2019 Chronic issueColon oscopy 2015 and 92970390SB D 05/16/2018 unremarkab le [id number] Bea Summers MD [facility] [address] [place] [address] 11/04/2023 10:17:10 11/04/2023 11:46:11 Chronic obstructive pulmonary disease 56462639 J44.9 BEQ606%, FVC94%, FEV1/FVC59 %(2016) repeated PFTs YIx349%, FVC 71%, FEV1/FVC 83%, DLCO 40% ( 2017), continue albuterol, Atrovent, and Air duo respiclick 113/14. She was advised to rinse mouth after using Airduo. I will continue Inruse ellipta to her regimen. repeated PFTs showed FEV1 80%, FVC 77%, FEV1/FVC 83%, DLCO41%, BD-(2019), repeated PFTs showed FEV1/ 63%, FVC , FEV1/FVC 66%, DLCO 38%, BD+(2021), UP to date with COVID-19, i will repeat PFT Nicotine dependence 5629 4008 F17.200 40 PYH, counsled to quit for 5 minutes. Chronic hoarseness 80810 25201 105 R49.0 Secondary to vocal cord paralysis. Vocal cord paralysis 302 871968 J38.01 Following with ENT Solitary n odule of lung 757716961 R91.1 Need follow up in 1 year, 06/2018- [address] chest 06/2018 showed tiny pulmonary nodules bilaterall y,. need follow up CT in 1 year 06/2019( reviewed by me). Mammogram was unremarkab le, colonoscop y 4 years ago was fine. LDCT 06/2020, no pulmonary nodules. LDCT 2020, unremarkab le. PET 04/2022, unremarkab le LDCT 2022 showed benign pattern, will repeat LDCT 12/2023. Anxiety 20807125 F41.9 contribute d to SOB History of tracheostomy 426900959 Z93.0 S/P closure , closure 01/14/18 History of SARS-CoV-2 29 45079009 94228784 Z86.16 07/2020 and 10/2022, patient is having trouble with congestion . I will give the patient medrol raya Allergic rhinitis 623648 04 J30.9 See below. Posterior rhinorrhea 758 09909 R09.82 She has been on Flonase and Singulair Chronic cough 07675485 R 05.3 Multifacto rial Chest over-expanded 2496 81367 Q67.8 127% TLC Air trapping 89446402 J9 8.8 RV 227% Pulmonary emphysema 8743 3001 J43.9 DLCO 42%, TLC 84%, secondary to history of nicotine dependence . Dyspnea on exertion 6084 5006 R06.09 She's doing better Restrictiv e lung disease 31457537 J98.4 TLC 75%, secondary to pulmonary fibrosis, now 78%, not seen in 2021 Sleep rela ross hypoxemia 1740667025 40985 G47.36 Patient would need O2 at night 2 L/M. her sleep study showed no JIMMIE Sleep disorder 32551044 G47.9 Nocturnal study showed sleep related hypoxemia. Would need O2 at night at 2L/M, she had split sleep study 06/2018 which showed no JIMMIE. [id number] Orlando Ventura MD [facility] [address] [place] [address] 11/26/2023 11:22:56 12/04/2023 14:15:29 Impacted cerumen 68176780 H61.20 Sensorineu ral hearing loss of bilateral ears 201999629 H90.3 follow-up after audiogram [id number] Esthela Torre MD [facility] (Adult Med) [address] [place] [address] 02/05/2024 11:06:26 02/06/2024 11:29:19 Kidney stone 41116867 N20.[address] done in the ER Left carot id artery stenosis 4027760017 80746 I65.22 Steatotic liver disease 609329525 K76.[address] done in the ER Follow-up visit 86157263 9 Z09 Screening mammography 24 536728 Z12.31 [id number] Bea Summers MD [facility] [address] [place] [address] 05/07/2024 11:01:33 05/07/2024 12:47:48 Nicotine dependence 41358021 Z87.891 40 PYH, counsled to quit for 5 minutes. Chronic ob structive pulmonary disease 17410891 J44.9 SDH346%, FVC94%, FEV1/FVC59 %(2016) repeated PFTs TRc531%, FVC 71%, FEV1/FVC 83%, DLCO 40% ( 2017), continue albuterol, Atrovent, Incruse and Symbicort. repeated PFTs showed FEV1 80%, FVC 77%, FEV1/FVC 83%, DLCO41%, BD-(2019), repeated PFTs showed FEV1/ 63%, FVC , FEV1/FVC 66%, DLCO 38%, BD+(2021), UP to date with COVID-19, Repeated PFTs FEV1 59%, FVC 66%, FEV1/FVC 68%, TLC 95%, DLCO 32%, BD-(2023) Chronic hoarseness 40432 55792 105 R49.0 Secondary to vocal cord paralysis. Vocal cord paralysis 302 504066 J38.01 Following with ENT Solitary n odule of lung 239899776 R91.1 Need follow up in 1 year, 06/2018- [address] chest 06/2018 showed tiny pulmonary nodules bilaterall y,. need follow up CT in 1 year 06/2019( reviewed by me). Mammogram was unremarkab le, colonoscop y 4 years ago was fine. LDCT 06/2020, no pulmonary nodules. LDCT 2020, unremarkab le. PET 04/2022, unremarkab le LDCT 2022 showed benign pattern, will repeat LDCT 12/2023- done at [facility], result is unavailabl e. Anxiety 62310370 F41.9 contribute d to SOB History of tracheostomy 184672916 Z93.0 S/P closure , closure 01/14/18 History of SARS-CoV-2 29 88875349 31895634 Z86.16 07/2020 and 10/2022, patient is having trouble with congestion . I will give the patient medrol raya Allergic rhinitis 872420 04 J30.9 See below. Posterior rhinorrhea 758 07759 R09.82 She has been on Flonase and Singulair Chronic cough 60758681 R 05.3 Multifacto rial Air trapping 60807060 J9 8.8 RV 155% Pulmonary emphysema 8743 3001 J43.9 DLCO 32%, TLC 95%, secondary to history of nicotine dependence . Dyspnea on exertion 6084 5006 R06.09 She's doing better Restrictiv e lung disease 86555685 J98.4 TLC 75%, secondary to pulmonary fibrosis, now 78%, not seen in 2021 Sleep rela ross hypoxemia 2051628201 06525 G47.36 Patient would need O2 at night 2 L/M. her sleep study showed no JIMMIE Sleep disorder 93811226 G47.9 Nocturnal study showed sleep related hypoxemia. Would need O2 at night at 2L/M, she had split sleep study 06/2018 which showed no JIMMIE. [id number] Esthela Torre MD [facility] (Adult Med) [address] [place] [address] 08/03/2024 11:22:21 08/04/2024 12:19:40 Upper respiratory infection 40591670 J06.9 Osteoporosis 28991068 M8 1.0 Allergic rhinitis 324052 04 J30.9 Benign hypertension 1072 5009 I10 Easy bruising 545974571 R58 Reported but not seen on exam Postmenopausal state 764 95190 Z78.0 Carotid ar micheline stenosis 52877162 I65.29 Screening for cancer 158 31193 Z19.1 Pap 05/09/2022M MG 4Colono scopy 2017LD2022 History of nicotine dependence 0284199709 57024074 Z87.864 [id number] Bea Summers MD [facility] [address] [address] 09/10/2024 10:52:40 09/10/2024 14:18:49 Nicotine dependence 15092326 Z87.891 40 PYH, counsled to quit for 5 minutes. Chronic ob structive pulmonary disease 61250229 J44.9 OVE419%, FVC94%, FEV1/FVC59 %(2016) repeated PFTs IAo142%, FVC 71%, FEV1/FVC 83%, DLCO 40% ( 2017), continue albuterol, Atrovent, Incruse and Symbicort. repeated PFTs showed FEV1 80%, FVC 77%, FEV1/FVC 83%, DLCO41%, BD-(2019), repeated PFTs showed FEV1/ 63%, FVC , FEV1/FVC 66%, DLCO 38%, BD+(2021), UP to date with COVID-19, Repeated PFTs FEV1 59%, FVC 66%, FEV1/FVC 68%, TLC 95%, DLCO 32%, BD-(2023) Chronic hoarseness 78464 43762 105 R49.0 Secondary to vocal cord paralysis. Vocal cord paralysis 302 031641 J38.01 Following with ENT Solitary n odule of lung 765826687 R91.1 Need follow up in 1 year, 06/2018- [address] chest 06/2018 showed tiny pulmonary nodules bilaterall y,. need follow up CT in 1 year 06/2019( reviewed by me). Mammogram was unremarkab le, colonoscop y 4 years ago was fine. LDCT 06/2020, no pulmonary nodules. LDCT 2020, unremarkab le. PET 04/2022, unremarkab le LDCT 2022 showed benign pattern, will repeat LDCT 12/2023- done at [facility], result is unavailabl e. Anxiety 86794461 F41.9 contribute d to SOB History of tracheostomy 527570021 Z93.0 S/P closure , closure 01/14/18 History of SARS-CoV-2 29 68390646 09667177 Z86.16 07/2020 and 10/2022, patient is having trouble with congestion . I will give the patient medrol raya Allergic rhinitis 368211 04 J30.9 See below. Posterior rhinorrhea 758 18476 R09.82 She has been on Flonase and Singulair Chronic cough 51012055 R 05.3 Multifacto rial Air trapping 21357614 J9 8.8 RV 155% Pulmonary emphysema 8743 3001 J43.9 DLCO 32%, TLC 95%, secondary to history of nicotine dependence . Dyspnea on exertion 6084 5006 R06.09 She's doing better Restrictiv e lung disease 34320120 J98.4 TLC 75%, secondary to pulmonary fibrosis, now 78%, not seen in 2021 Sleep rela ross hypoxemia 3751857501 43485 G47.36 Patient would need O2 at night 2 L/M. her sleep study showed no JIMMIE Sleep disorder 28050785 G47.9 Nocturnal study showed sleep related hypoxemia. Would need O2 at night at 2L/M, she had split sleep study 06/2018 which showed no JIMMIE. [id number] Bea Summers MD [facility] [address] [place] [address] 12/21/2024 11:25:58 12/21/2024 14:37:30 Nicotine dependence 34747988 Z87.891 40 PYH, counsled to quit for 5 minutes. Chronic ob structive pulmonary disease 54099423 J44.9 PJV782%, FVC94%, FEV1/FVC59 %(2016) repeated PFTs EVi168%, FVC 71%, FEV1/FVC 83%, DLCO 40% ( 2017), continue albuterol, Atrovent, Incruse and Symbicort. repeated PFTs showed FEV1 80%, FVC 77%, FEV1/FVC 83%, DLCO41%, BD-(2019), repeated PFTs showed FEV1/ 63%, FVC , FEV1/FVC 66%, DLCO 38%, BD+(2021), UP to date with COVID-19, Repeated PFTs FEV1 59%, FVC 66%, FEV1/FVC 68%, TLC 95%, DLCO 32%, BD-(2023), in mild exacerbati on Chronic hoarseness 36042 73006 105 R49.0 Secondary to vocal cord paralysis. Vocal cord paralysis 302 274115 J38.01 Following with ENT Anxiety 29349248 F41.9 contribute d to SOB History of tracheostomy 669347128 Z93.0 S/P closure , closure 01/14/18 History of SARS-CoV-2 29 02156063 59583784 Z86.16 07/2020 and 10/2022, patient is having trouble with congestion . I will give the patient medrol raya Allergic rhinitis 607732 04 J30.9 See below. Posterior rhinorrhea 758 42983 R09.82 She has been on Flonase and Singulair Chronic cough 50015762 R 05.3 Multifacto rial Air trapping 27331363 J9 8.8 RV 155% Pulmonary emphysema 8743 3001 J43.9 DLCO 32%, TLC 95%, secondary to history of nicotine dependence . Dyspnea on exertion 6084 5006 R06.09 She's doing better Restrictiv e lung disease 39481179 J98.4 TLC 75%, secondary to pulmonary fibrosis, now 78%, not seen in 2021 Sleep rela ross hypoxemia 1475372131 07903 G47.36 Patient would need O2 at night 2 L/M. her sleep study showed no JIMMIE Sleep disorder 79010268 G47.9 Nocturnal study showed sleep related hypoxemia. Would need O2 at night at 2L/M, she had split sleep study 06/2018 which showed no JIMMIE. Multiple n odules of lung 298956716 R91.8 Need follow up in 1 year, 06/2018- [address] chest 06/2018 showed tiny pulmonary nodules bilaterall y,. need follow up CT in 1 year 06/2019( reviewed by me). Mammogram was unremarkab le, colonoscop y 4 years ago was fine. LDCT 06/2020, no pulmonary nodules. LDCT 2020, unremarkab le. PET 04/2022, unremarkab le CT chest 10/17 showed small 4 mm nodule, need repeat LDCT in 10/18 [id number] Esthela Torre MD [facility] (Adult Med) [address] [place] [address] 02/03/2025 11:36:26 02/04/2025 10:54:06 Nodule of lung 112353148 R91.1 LDCT 10/08/2024, 4 mm NACHO non calcified nodule.Dis cussed, she follows up with the pulmonolog ist 02/06/2017I ncidental finding on her CT scan, she is aware that she will need a follow up CT scan in a year Chronic cough 62494976 R 05.3 Cervical radiculopathy 16428075 M54.12 Neuropathy 881650037 G62 .9 Her NCS from 01/14/2019 suggests evolving CTS, although her symptoms involve her entire left hand.I will repeat her EMG and obtain a MRI of the cervical spine. Carpal mehdi chantale syndrome of left wrist 2321091166 24251 G56.02 Subtle CTS on the EMG/NCS, I wonder if she has a cervical radiculopa thy although her neck symptoms are minimal. Chronic ob structive pulmonary disease 21651673 J44.9 Tobacco de pendence caused by cigarettes 1305025540 4415483 F17.210 Discussed History of influenza 789 199974 Z87.09 Health Concerns Section Related Observation LastModified by Organization Sobeida horn LastModified Time None Recorded Concern Status LastModified by Organization Details LastModified Time None Recorded Advance Directives Directive N: Payers Insurance Date Sequence Insurance Name Policy Number Policy Stacy Covered Member ID Stacy Member ID Guarantor Name 02/03/2025 1 [facility] (MEDICARE REPLACEMENT/A DVANTAGE - HMO) [id number] Tatiana Humphrey [id number] Tatiana Humphrey 07/02/2023 [place] [facility] Tatiana Humphrey [id number] Tatiana Humphrey 07/02/2023 1 [place] Tatiana Humphrey [id number] Tatiana Humphrey 07/02/2023 1 [employer] (MEDICARE REPLACEMENT/A DVANTAGE - HMO) Tatiana Humphrey [id number] Tatiana Humphrey 07/02/2023 1 [facility] - DOS PRIOR TO 2021 (MEDICAID REPLACEMENT - HMO) Tatiana Humphrey [id number] Tatiana Humphrey 03/18/2015 SLIDING FEE SCHEDULE - DISCOUNT Tatiana Humphrey 07/02/2023 [facility] DEPT Tatiana Humphrey [id number] Tatiana Humphrey 07/02/2023 2 [place] [facility] [place] Tatiana Humphrey [id number] Tatiana Humphrey 02/06/2017 SLIDING FEE SCHEDULE - DISCOUNT Tatiana Humphrey 10/09/2016 1 *SELF PAY* [facility] Humphrey 07/02/2023 [place] [facility] [id number] Tatiana Humphrey 03/19/2025 1 [employer] (MEDICARE REPLACEMENT/A DVANTAGE - HMO) [id number] Tatiana Humphrey [id number] Tatiana Humphrey 07/02/2023 1 [place] Tatiana Humphrey [id number] Tatiana Humphrey 07/02/2023 1 [facility] (MEDICAID HMO) [id number] Tatiana Humphrey [id number] Tatiana Humphrey 02/03/2025 1 [place] WHEN MEDICARE OR MEDICARE REPLACEMENT PRIMARY) Tatiana Humphrey [id number] Tatiana Humphrey Notes Date Note Type Note Provider Name and Address Organization Details Recorded Time 05/07/2024 text/html Patient is here for follow up. She is feeling very good. Bea Summers MD [address] [place], [address], [facility] 05/07/2024 11:38:43 08/03/2024 text/html Medicare Annual Wellness VisitReported bypatient.Diet and Nutrition:discussed vitamin and supplement use Fracture Risk:no history of fractures; no recent explained fracture; no sudden unexplained fractures; no previous musculoskeletal injuries Physical Activity:exercises on a regular basis; recent increase in physical activity; good physical condition Depression Risk:never feels sad, empty, or tearful; no loss of interest in activities; no significant changes in weight; no sleep disturbances or insomnia; no agitation; no loss of energy; no feelings of worthlessness or guilt; no thoughts of suicide; no history of depression;history of mood disorders Orientation:no disorientation to time; no disorientation to date; no disorientation to place Concentration and Memory:no decreased concentrating ability; no memory lapses or loss; does not forget words Speech/Motor difficulties:no speech difficulties; no difficulty expressing formulated concepts; no difficulty with fine manipulative tasks; no difficulty writing/copying; no slowed reaction time; does not knock things over when trying to pick them up Hearing:loss of hearing: in both ears Vision:worse both distance and near Activities of Daily Living:able to bathe with limited or no assistance; able to contol urination and bowels; able to dress with limited or no assistance; able to feed self with limited or no assistance; able to get out of chair or bed with limited or no assistance; able to groom with limited or no assistance; able to toilet with limited or no assistance Instrumental Activities of Daily Living:able to do house work with limited or no assistance; able to grocery shop with limited or no assistance; able to manage medications with limited or no assistance; able to manage money with limited or no assistance; able to prepare meals with limited or no assistance; able to use the phone with limited or no assistance Falls Risk Assessment:no frequent falls while walking; no dizziness/vertigo; fall(s) in the past year 1; fall(s) since last visit0 Home Safety:no unsafe aaliyah hazzards; no unsafe stairs; no unsafe gas appliances; working smoke/CO detectors; wears protective head gear for biking/high velocity; use of seatbelts; no vision or hearing loss while driving; has hand bars in the bathroom/shower; good lighting in the homeUpper Respiratory SymptomsReported bypatient.[facility] Quality:productive cough;congested Severity:mild Onset/Timing:actual date: (07/31/24) Associated Symptoms:no sputum production; no shortness of breath; no change in number of pillows needed to sleep at night; no sweats; no fever; no significant weight gain; no significant weight loss; no vomiting; no diarrhea; no rash; no nausea;wheezing;morni ng cough;sore throat It's just a regularI just have a little coldI bruise real easilyThe Pap? Ms Humphrey returns with symptoms suggestive of a URI for ~ 3-4 days, there is no fever, myalgia or SOB. She also reports that she bruises easily and this started before she started Aspirin on her 02/05/2024 visit. Esthela Torre MD Attn: Accounting,[address] [place], [address], [facility] - [facility] 08/03/2024 13:30:57 09/10/2024 text/html Patient is here for follow-up. She is asking me about her low-dose CT scan of the chest which she has done few months ago at [facility]. Result is still not available. Bea Summers MD [address] [place], [address], [place] [facility] 09/10/2024 11:38:59 12/21/2024 text/html Patient is here for follow up. She's still smoking. She's coughing and producing sputum. Bea Summers MD [address] [place], [address], [place] 12/21/2024 12:43:07 02/03/2025 text/html CoughReported bypatient.Severity:mi ld Duration:intermittent ; symptoms lasting over 2 weeks Context:smoker Associated Symptoms:no fever; no chills; no chest pain; no heartburn; no nausea; no vomiting; no edema; no agitation; no wheezing; no post nasal drip What do I need to do besides stop smoking?I still have the tinglingI have this cough Ms Humphrey continues to have pain from the tips of the fingers of her left hand to the left side of her neck, she had an abnormal xray of the cervical spine and EMG/NCS in 2019. In the interim, she had an abnormal cardiac cath with multiple lesions ~ 20-30%. Since her recent Flu, she continues to have a cough productive of yellowish sputum Esthela Torre MD Attn: Accounting,[address] [place], [address], [facility] - [facility] 02/03/2025 13:50:01 OBGyn Episode No OBEpisode recorded.
--- OUTSIDE RECORDS SUMMARY | 2025-03-30 10:14 | XMS_ITS | Clinical Summary ---
Author Organization [facility] Address [address] [place] [address] Care Team Providers Care Comic Book Writer Name Role Phone Esthela Lowe MD Primary Care Provider Bea Arias MD Unavailable [phone] Source Comments [facility],non-owned Affiliates and Associated Physician Practices is amultiple site organization consisting of ambulatory clinics and hospital sitesin [place], [place], [place] and [place]. This disclosure is being madepursuant to the Care Everywhere program and may not contain all information available regarding this patient. Last updated 18.[facility] Allergies Active Allergy Reactions Criticality Noted Date Comments Penicillins Urticaria Medium 01/27/2017 Medications * Be aware that medications may not be up to date on this document. Alwaysverify current medications with the patient. amLODIPine (NORVASC) 10 MG tablet Take 10 mg by mouth once daily Active albuterol (PROVENTIL;JACOB EV) (2.5 MG/3ML) 0.083% nebulizer solution Inhale 1 vial by mouth every 4 hours as needed 12/02/2017 Active alendronate (FOSAMAX) 70 MG tablet Take 70 mg by mouth every 7 days 12/25/2017 Active CALCIUM 600+D 600-800 MG-UNIT tablet Take 600 mg by mouth once daily 12/25/2017 Active multivitamin daily (ONE A DAY) tablet Take 1 tablet by mouth once daily 12/12/2017 Active citalopram (CELEXA) 10 MG tablet Take 10 mg by mouth once daily 10/30/2017 Active fluticasone-salm eterol hfa (ADVAIR HFA) 115-21 MCG/ACT Inhale 2 puffs by mouth 2 times daily Active fluticasone-salm eterol 113-14 MCG/ACT inhaler Inhale 1 puff by mouth 2 times daily 03/12/2018 Active albuterol HFA (PROVENTIL;JACOB EV;PROAIR) 108 (90 Base) MCG/ACT inhaler Inhale 1 puff by mouth every 6 hours 02/10/2019 Active montelukast (SINGULAIR) 10 MG tablet Take 10 mg by mouth once daily 02/27/2019 Active pravastatin (PRAVACHOL) 40 MG tablet Take 40 mg by mouth once daily 02/10/2019 Active hydroCHLOROthiaz yash (HYDRODIURIL) 25 MG tablet 10/30/2019 Active albuterol-ipratr opium (DUO-NEB) 0.5-2.5 (3) MG/3ML nebulizer solution 12/30/2020 Active Active Problems Problem Noted Date Diagnosed Date Stridor 01/27/2017 Intraductal papilloma of breast, left Immunizations Immunization Administration Dates Next Due INFLUENZA VACCINE 07/24/2018 Family History Medical History Relation Name Comments Diabetes - Type 2 Brother Hypertension Brother Diabetes - Type 2 Father Hypertension Father Cancer - Breast Maternal Aunt Diabetes - Type 2 Maternal Grandfather Hypertension Maternal Grandfather Diabetes - Type 2 Maternal Grandmother Hypertension Maternal Grandmother CVA Mother Diabetes - Type 2 Mother Hypertension Mother Cancer - Breast Paternal Aunt Diabetes - Type 2 Paternal Grandfather Hypertension Paternal Grandfather Diabetes - Type 2 Paternal Grandmother Hypertension Paternal Grandmother Cancer - Lung Sister Diabetes - Type 2 Sister Hypertension Sister Relation Name Status Comments Brother Father Maternal Aunt Maternal Grandfather Maternal Grandmother Mother Paternal Aunt Paternal Grandfather Paternal Grandmother Sister Alive Social History Tobacco Use Types Packs/Day Years Used Date Smoking Tobacco: Former Cigarettes Q uit: 2017 Smokeless Tobacco: Never Tobacco Cessation:Ready to Q uit: No; Counseling Given: Yes Alcohol Use Standard Drinks/Week Comments Yes 0 (1 standard drink = 0.6 oz pur e alcohol) Comments Unknown Sex and Gender Information Value Date Recorded Sex Assigned at Not on file Legal Sex Female 11:13 AM CDT Gender Identity Not on file Sexual Orientation Not on file Last Filed Vital Signs Vital Sign Reading Time Taken Comments Blood Pressure 136/69 03/07/2021 11:11 AM CDT Pulse 86 03/07/2021 11:11 AM CDT Temperature 36.3 C (97.4 F) 01/31/2021 11:02 AM CDT Respiratory Rate 18 10/06/2019 3:[address] WORKER Oxygen Saturation 94% 11/03/2019 8:[address] WORKER Inhaled Oxygen Concentration 21% 01/30/2017 2 :35 PM CDT Weight 71.7 kg (158 lb) 03/07/2021 11:11 AM CDT Height 157.5 cm (5' 2) 03/07/2021 11:11 AM CDT Body Mass Index 28.9 03/07/2021 11:11 AM CDT Plan of Treatment Health Maintenance Due Date Last Done Comments BONE DENSITY TESTING 1955 COLOGUARD (AGES 45-75) - COLON CA SCREENING 1957 COLON MONITORING 1957 COLONOSCOPY - COLON CA SCREENING 1957 CT COLONOGRAPHY - COLON CA SCREENING 1957 Colorectal Cancer Screening 1957 FIT - COLON CA SCREENING 1957 FLEX SIG - COLON CA SCREENING 1957 HEPATITIS C SCREENING 07/04/1975 DTAP/TDAP/TD VACCINES (1 - Tdap) 1976 PNEUMOCOCCAL VACCINE 50+ (1 of 1 - PCV) 2007 ZOSTER VACCINE (1 of 2) 2007 SCREENING FOR DIABETES 02/01/2020 7, 01/31/2017, 01/30/2017, Additional history exists MAMMOGRAM 08/27/2021 08/27/2019, 07/25, 06/08/2019 COVID-19 VACCINE (1 - season) 2024 DEPRESSION SCREENING 09/23/2024 INFLUENZA VACCINE (Season Ended) 2025 07/24/2018 Respiratory Syncytial Virus (RSV) Vaccine Pt: or over 60 yrs (1 - 1-dose 75+ series) 2032 HEPATITIS B VACCINE Aged Out No longe r eligible based on patient's age to complete this topic HIB VACCINE Aged Out No longer eligi ble based on patient's age to complete this topic HPV VACCINE Aged Out No longer eligi ble based on patient's age to complete this topic MENINGOCOCCAL (Group B) VACCINE SHARED DECISION-MAKING Aged Out No longer eligible based on patient's age to complete this topic MENINGOCOCCAL GROUPS A/C/Y/W VACCINE Aged Out No longer eligible based on patient's age to complete this topic Procedures Procedure Name Priority Date/Time Associated Diagnosis Comments MAMMO BILAT DIAGNOSTIC Routine 08/27/2019 11:[address] WORKER Abnormal mammogram GLUCOSE - POINT OF CARE Routine 01/31/2017 12:23 PM CDT from Last 3 Months or Most Recently Relevant to Health Maintenance Results * MAMMO BILAT DIAGNOSTIC (08/27/2019 11:[address] WORKER) Anatomical Region Laterality Modality Breast Bilateral Mammography 08/27/2019 11:[address] Addenda Addendum by Job Mckinney MD on 08/31/2019 11:[address] WORKER ORIGINAL REPORT BILATERAL DIAGNOSTIC MAMMOGRAM COMPLETE LEFT BREAST ULTRASOUND TECHNIQUE: Images were performed using 3D tomosynthesis images with reconstructed/synthetic 2D images. CAD analysis was performed. DATE: 08/27/2019. HISTORY: 64-year-old female referred for further evaluation of left breast nipple discharge. She states she had one episode of bloody nipple discharge and a few subsequent episodes of clear nipple discharge. She has a history of 2 left breast benign biopsies. COMPARISON: Several prior mammograms from 2010 through left breast diagnostic mammogram and ultrasound 06/08/2019 from [facility]. Please note the 3-D images of the left breast MLO view 06/08/2019 were requested several times and are not available. Right MLO view and 3-D images of both MLO views of 12/04/2018 screening mammogram are also unavailable after several requests. BREAST COMPOSITION: There are scattered areas of fibroglandular density. FINDINGS: As prior mammograms are incomplete (some images completely missing, some without tomosynthesis), bilateral CC and MLO tomosynthesis views obtained. No suspicious mass, architectural distortion, or calcifications in the right breast. No significant change compared to the prior study. Biopsy clip adjacent to a stable 0.5 cm oval circumscribed mass in the upper outer left breast at mid depth. Biopsy clip within the enlarging mass in the inner central anterior left breast. Stable asymmetric tissue in the outer central posterior left breast, considered benign. Likely low-lying lymph node partially imaged overlying the pectoralis in the central posterior left breast. Ultrasound of all 4 quadrants, the subareolar breast, and the axilla performed by the plumbing engineer. Ultrasound of the outer left breast also performed by the physician. In the upper outer left breast, a 0.5 cm oval circumscribed hypoechoic mass is imaged. It corresponds to the mammographically stable mass and is considered benign. At 9:00, 2 cm from the nipple, a lobulated hypoechoic mass measures 0.8 x 0.5 x 0.6 cm. Artifact from biopsy clip identified within the mass. As it has enlarged, ultrasound-guided biopsy is recommended and will be performed today. At 3:00, 10 cm from the nipple, there is a morphologically normal lymph node. It is favored to correspond to the mammographic mass overlying the pectoralis. It is considered benign. Prominent left axillary lymph nodes are mammographically stable and considered benign. IMPRESSION: The enlarging left breast mass at 9:00, 2 cm from the nipple is indeterminate. ASSESSMENT: BI-RADS Category 4: Suspicious finding - biopsy should be considered. Subcategory 4a: low suspicion for malignancy. RECOMMENDATION: Left breast ultrasound-guided biopsy is recommended and will be performed later today. Findings discussed with the patient by Dr. Mckinney. Result letter given to the patient. This report was electronically signed by JOB MCKINNEY M.D. on 08/27/2019 1:11 PM . 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 No evidence of malignancy. The results are benign and concordant with the imaging assessment. Surgical management is recommended. She is a patient of Dr. Elmore. This report was electronically signed by JOB MCKINNEY M.D. on 08/31/2019 11:29 AM . Impressions 08/27/2019 1:[address] WORKER IMPRESSION: The enlarging left breast mass at 9:00, 2 cm from the nipple is indeterminate. ASSESSMENT: BI-RADS Category 4: Suspicious finding - biopsy should be considered. Subcategory 4a: low suspicion for malignancy. RECOMMENDATION: Left breast ultrasound-guided biopsy is recommended and will be performed later today. Findings discussed with the patient by Dr. Mckinney. Result letter given to the patient. This report was electronically signed by JOB MCKINNEY M.D. on 08/27/2019 1:11 PM . Narrative 08/27/2019 1:[address] WORKER BILATERAL DIAGNOSTIC MAMMOGRAM COMPLETE LEFT BREAST ULTRASOUND TECHNIQUE: Images were performed using 3D tomosynthesis images with reconstructed/synthetic 2D images. CAD analysis was performed. DATE: 08/27/2019. HISTORY: 64-year-old female referred for further evaluation of left breast nipple discharge. She states she had one episode of bloody nipple discharge and a few subsequent episodes of clear nipple discharge. She has a history of 2 left breast benign biopsies. COMPARISON: Several prior mammograms from 2009 through left breast diagnostic mammogram and ultrasound 06/08/2019 from [facility]. Please note the 3-D images of the left breast MLO view 06/08/2019 were requested several times and are not available. Right MLO view and 3-D images of both MLO views of 12/04/2018 screening mammogram are also unavailable after several requests. BREAST COMPOSITION: There are scattered areas of fibroglandular density. FINDINGS: As prior mammograms are incomplete (some images completely missing, some without tomosynthesis), bilateral CC and MLO tomosynthesis views obtained. No suspicious mass, architectural distortion, or calcifications in the right breast. No significant change compared to the prior study. Biopsy clip adjacent to a stable 0.5 cm oval circumscribed mass in the upper outer left breast at mid depth. Biopsy clip within the enlarging mass in the inner central anterior left breast. Stable asymmetric tissue in the outer central posterior left breast, considered benign. Likely low-lying lymph node partially imaged overlying the pectoralis in the central posterior left breast. Ultrasound of all 4 quadrants, the subareolar breast, and the axilla performed by the plumbing engineer. Ultrasound of the outer left breast also performed by the physician. In the upper outer left breast, a 0.5 cm oval circumscribed hypoechoic mass is imaged. It corresponds to the mammographically stable mass and is considered benign. At 9:00, 2 cm from the nipple, a lobulated hypoechoic mass measures 0.8 x 0.5 x 0.6 cm. Artifact from biopsy clip identified within the mass. As it has enlarged, ultrasound-guided biopsy is recommended and will be performed today. At 3:00, 10 cm from the nipple, there is a morphologically normal lymph node. It is favored to correspond to the mammographic mass overlying the pectoralis. It is considered benign. Prominent left axillary lymph nodes are mammographically stable and considered benign. Procedure Note Job Mckinney MD - 08/27/2019 BILATERAL DIAGNOSTIC MAMMOGRAM COMPLETE LEFT BREAST ULTRASOUND TECHNIQUE: Images were performed using 3D tomosynthesis images with reconstructed/synthetic 2D images. CAD analysis was performed. DATE: 08/27/2019. HISTORY: 64-year-old female referred for further evaluation of leftbreast nipple discharge. She states she had one episode of bloody nipple discharge and a few subsequent episodes of clear nipple discharge. Shehas a history of 2 left breast benign biopsies. COMPARISON: Several prior mammograms from 2009 through left breast diagnostic mammogram and ultrasound 06/08/2019 from [facility]. Please note the 3-D images of the left breast MLO view06/08/2019 were requested several times and are not available. Right MLO view and3-D images of both MLO views of 12/04/2018 screening mammogram are also unavailable after several requests. BREAST COMPOSITION: There are scattered areas of fibroglandular density. FINDINGS: As prior mammograms are incomplete (some images completely missing, some without tomosynthesis), bilateral CC and MLO tomosynthesis viewsobtained. No suspicious mass, architectural distortion, or calcifications in the right breast. No significant change compared to the prior study. Biopsy clip adjacent to a stable 0.5 cm oval circumscribed mass in the upper outer left breast at mid depth. Biopsy clip within the enlarging mass in the inner central anterior left breast. Stable asymmetric tissue in the outer central posterior left breast, considered benign. Likely low-lying lymph node partially imaged overlying the pectoralis in the central posterior left breast. Ultrasound of all 4 quadrants, the subareolar breast, and the axilla performed by the plumbing engineer. Ultrasound of the outer left breast also performed by the physician. In the upper outer left breast, a 0.5 cm oval circumscribed hypoechoic mass is imaged. It corresponds to the mammographically stable mass andis considered benign. At 9:00, 2 cm from the nipple, a lobulated hypoechoic mass measures 0.8x 0.5 x 0.6 cm. Artifact from biopsy clip identified within the mass. Asit has enlarged, ultrasound-guided biopsy is recommended and will be performed today. At 3:00, 10 cm from the nipple, there is a morphologically normal lymph node. It is favored to correspond to the mammographic mass overlying the pectoralis. It is considered benign. Prominent left axillary lymph nodes are mammographically stable and considered benign. IMPRESSION: The enlarging left breast mass at 9:00, 2 cm from the nipple is indeterminate. ASSESSMENT: BI-RADS Category 4: Suspicious finding - biopsy should be considered. Subcategory 4a: low suspicion for malignancy. RECOMMENDATION: Left breast ultrasound-guided biopsy is recommended and will beperformed later today. Findings discussed with the patient by Dr. Mckinney. Result letter given to the patient. This report was electronically signed by JOB MCKINNEY M.D. on 08/27/2019 1:11 PM . us Sonal Elmore MD MAMMO ORDERABLES Edited Re sult - Final * GLUCOSE - POINT OF CARE (01/31/2017 12:23 PM CDT) Glucose WB/POC 87 70 - 106 mg/dL 01/31/2017 3:42 PM CDT [facility] Blood BLOOD SPECIMEN / Unknown 01/31/2017 12:23 PM CDT 01/31/2017 3:42 PM CDT us Adonis Herrera MD LAB - POINT OF CARE ORDERABLES Final Result [facility] [address] [place] [address] from Last 3 Months or Most Recently Relevant to Health Maintenance Insurance MEDICARE MEDICAID - OUT OF STATE [facility] MANAGED MEDICARE ADV Advance Directives Documents on File Type Date Recorded Patient Applied Psychology Chair Expl anation Adv Directive/Living Will/POA 01/27/2017 * Full Code (Latest Code Status on File) Date Activated Date Inactivated Comments 01/27/2017 2:43 PM 01/31/2017 3:45 PM Care Teams Comic Book Writer Relationship Specialty Start Date End Date Esthela Lowe MD PCP - General Internal Medicine 01/28/17 Bea Arias MD [address] [place] [address] [place] [phone] Cart Driver Internal Medicine 01/07/18
--- NOTE | 2025-03-30 11:00 | NEURO_ITS ---
Impression: # Complains of left hand numbness ? # Mild left Carpal Tunnel Syndrome ? # No Ulnar Neuropathy ? # Normal Needle/EMG exam Nerve Conduction Studies ?Stim Site NR Peak (ms) P-T Amp (?V) Site1 Site2 Delta-P (ms) Dist (cm) Jeremy (m/s) Left Median Anti Sensory (2-3nd Digit) Wrist ? 3.5 23.6 Wrist 2-3nd Digit 3.5 14.0 40 Wrist ? 3.6 23.9 Wrist 2-3nd Digit 3.5 14.0 40 Left Radial Anti Sensory (Base 1st Digit) Wrist ? 1.8 16.3 Wrist Base 1st Digit 1.8 0.0 Left Ulnar Anti Sensory (5th Digit) Wrist ? 2.1 40.8 Wrist 5th Digit 2.1 14.0 67 ?Stim Site NR Onset (ms) O-P Amp (mV) Site1 Site2 Delta-0 (ms) Dist (cm) Jeremy (m/s) Left Median Motor (Abd Poll Brev) Wrist ? 4.1 5.4 Elbow Wrist 5.4 28.0 52 Elbow ? 9.5 4.5 Left Ulnar Motor (Abd Dig Minimi) Wrist ? 2.2 6.3 A Elbow Wrist 4.9 28.0 57 A Elbow ? 7.1 4.0 B Elbow Wrist 3.3 19.0 58 B Elbow ? 5.5 3.4 Electromyography ?Side Muscle Nerve Root Ins Act Fibs Amp Dur Recrt Comment Left 1stDorInt Ulnar C8-T1 Nml Nml Nml Nml Nml Left Ext Indicis Radial (Post Int) C7-8 Nml Nml Nml Nml Nml Left Ext Digitorum Radial (Post Int) C7-8 Nml Nml Nml Nml Nml Left BrachioRad Radial C5-6 Nml Nml Nml Nml Nml Left PronatorTeres Median C6-7 Nml Nml Nml Nml Nml Left Abd Poll Brev Median C8-T1 Nml Nml Nml Nml Nml Left ABD Dig Min Ulnar C8-T1 Nml Nml Nml Nml Nml Left FlexPolLong Median (Ant Int) C7-8 Nml Nml Nml Nml Nml Left Abd Poll Long Radial (Post Int) C7-8 Nml Nml Nml Nml Nml
== END 2025-03-30 10:06 | disposition home or self-care (01) ==
PROVIDERS: PCP Internal Medicine Infectious Disease; Visit Provider Internal Medicine Infectious Disease
DX: G56.02 Carpal tunnel syndrome, left upper limb (principal)
CPT/HCPCS: 95886; 95909